=== PATIENT | male | born 1965 | race Caucasian/White ===

== ENCOUNTER 2018-02-26 12:09 | Emergency (ER) | payer OTHER ==
[2018-02-26 12:19] VITALS: BP 118/85; PULSE 83; TEMP 97.5; BMI 30.4
[2018-02-26] MEDS ORDERED: KETOROLAC TROMETHAMINE 60 MG/2 ML VIAL IM ONE (12:34)
[2018-02-26] MEDS ORDERED: CYCLOBENZAPRINE HCL 10 MG TABLET (FP) PO ONE (12:34)
--- NOTE | 2018-02-26 12:38 | PDOC ---
History of Present Illness - General Stated Complaint: BACK PAIN Time Seen by Provider: 02/26/18 12:27 History Source: Patient - History of Present Illness Occurred: reports: other Pain Location: reports: back Past History - Past Medical History Allergies/Adverse Reactions: Allergies Allergy/AdvReac Type Severity Reaction Status Date / Time No Known Allergies Allergy Verified 02/26/18 12:14 Home Medications: Ambulatory Orders Carbidopa/Levodopa [Sinemet 25-100 mg Tablet] 2 each PO TID 02/26/18 Diclofenac Sodium [Voltaren -] 75 mg PO DAILY 02/26/18 Omeprazole 20 mg PO BID 02/26/18 Pramipexole Dihydrochloride [Mirapex -] 0.125 mg PO TID 02/26/18 Selegiline HCl 5 mg PO BID 02/26/18 Tramadol HCl 50 mg PO Q6H #15 tablet MDD 200 mg 02/26/18 COPD: No Other medical history: parkinsons - Surgical History Appendectomy: Yes - Suicide/Smoking/Psychosocial Hx Smoking History: Never smoked Have you smoked in the past 12 months: No Hx Alcohol Use: No Substance Use Type: None Review of Systems - Review of Systems Constitutional: No: Chills, Fever ABD/GI: No: Nausea, Vomiting, Abdominal cramping : No: Dysuria, Flank Pain, Hematuria Musculoskeletal: Yes: Back Pain Neurological: No: Numbness, Tingling, Weakness *Physical Exam - Vital Signs Last Vital Signs Temp Pulse Resp BP Pulse Ox 97.5 F L 83 18 118/85 99 02/26/18 12:16 02/26/18 12:16 02/26/18 12:16 02/26/18 12:16 02/26/18 12:16 - Physical Exam General Appearance: Yes: Appropriately Dressed, Mild Distress HEENT: positive: Normal Voice Gastrointestinal/Abdominal: positive: Soft. negative: Tender, Pulsatile Mass Musculoskeletal: positive: Vertebral Tenderness (to mid lower back). negative: CVA Tenderness Extremity: positive: Normal Inspection Integumentary: positive: Dry, Warm Neurologic: positive: Fully Oriented, Alert, Normal Mood/Affect, Motor Strength 5/5, Other (ambulatory ). negative: Sensory Deficit Medical Decision Making - Medical Decision Making 02/26/18 12:35 52-year-old male, history of Parkinson's disease, here with back pain. Patient states 2 days ago he woke up with mid lower back pain that radiates mostly to posterior aspect of left thigh. States pain mostly constant and getting worse. Did take diclofenac at home which relieved pain for 2-3 hours but then pain recurred. Denies any sensory changes, bowel or bladder incontinence, saddle anesthesia, symptoms, nausea, vomiting or fever. No history of similar pain. No recent trauma or other obvious inciting factors per patient See exam Lower back pain No trauma No infectious sxs No neuro sxs No abd/pain, n/v Possibly MSK, i.e strain, DJD, etc -pain control in ED -reassess 02/26/18 13:34 Patient states he still has some pain, though may be better with toradol. X- ray read as mild rotatory levoscoliosis and DJD. Will dc with pain control and instruct patient to follow-up with his PMD *DC/Admit/Observation/Transfer Diagnosis at time of Disposition: Low back pain Qualifiers: Chronicity: acute Back pain laterality: unspecified Sciatica presence: without sciatica Qualified Code(s): M54.5 - Low back pain - Discharge Dispostion Disposition: HOME Condition at time of disposition: Improved - Prescriptions Prescriptions: Tramadol HCl 50 mg PO Q6H #15 tablet MDD 200 mg - Referrals - Patient Instructions Printed Discharge Instructions: DI for Low Back Pain Additional Instructions: Your spine X-ray today showed some arthritic changes. Take tramadol for pain when it is severe, otherwise you can take Tylenol or extra strength Tylenol. If pain persists, please follow-up with your primary care physician Print Language: JAPANESE - Post Discharge Activity
[2018-02-26] MEDS ORDERED: CYCLOBENZAPRINE HCL 10 MG TABLET (FP) ONE (12:44)
[2018-02-26] MEDS ORDERED: KETOROLAC TROMETHAMINE 60 MG/2 ML VIAL ONE (12:44)
== END 2018-02-26 14:30 | disposition home or self-care (01) ==
LOC: JER 12:09
PROC: 3E0233Z Introduction of Anti-inflammatory into Muscle, Percutaneous Approach (ICD-10-PCS; principal; 2018-02-26)
DX: M54.5 Low back pain (principal); G20 Parkinson's disease
CPT/HCPCS: 72100-TC-FY; 99281-25

== ENCOUNTER 2019-06-17 18:42 | Inpatient (IN) | payer OTHER ==
--- NOTE | 2019-06-17 19:20 | PDOC ---
Rapid Medical Evaluation Chief Complaint: Pain Time Seen by Provider: 06/17/19 19:15 Medical Evaluation: Allergies Allergy/AdvReac Type Severity Reaction Status Date / Time No Known Allergies Allergy Verified 02/26/18 12:14 Vital Signs Temp Pulse Resp BP Pulse Ox 98.9 F 125 H 16 134/90 99 06/17/19 19:13 06/17/19 19:13 06/17/19 19:13 06/17/19 19:13 06/17/19 19:13 06/17/19 19:16 Pt presents for evaluation of RUQ pain. He was seen by his doctor today and there was concern for possible kidney stone. Pt endorses urinary hesitency. Exam: TTP RUQ, (-) CVA tenderness. Pt feels warm to touch Orders: Labs, CT stone, urine Pt to proceed to the ER for further evaluation Discharge Disposition - Diagnosis Back pain Qualifiers: Back pain location: back pain in unspecified location Chronicity: unspecified Back pain laterality: unspecified Qualified Code(s): M54.9 - Dorsalgia, unspecified - Referrals - Patient Instructions - Post Discharge Activity
--- NOTE | 2019-06-17 20:04 | PDOC ---
Attending Attestation - Resident Resident Name: AngusJeffrey - ED Attending Attestation I have performed the following: I have examined & evaluated the patient, The case was reviewed & discussed with the resident, I agree w/resident's findings & plan - HPI HPI: 06/17/19 23:09 see resident hpi - Physicial Exam PE: 06/17/19 23:09 see resident exam - Medical Decision Making 06/17/19 23:09 54-year-old male with fevers and right upper quadrant pain Labs and ultrasound suggestive of acute cholecystitis Unasyn 3 g given Admit to medical service for surgical consultation
--- NOTE | 2019-06-17 20:42 | PDOC ---
History of Present Illness - General Chief Complaint: Pain Stated Complaint: LOWER BACK PAIN Time Seen by Provider: 06/17/19 19:15 - History of Present Illness Initial Comments: Mr. Robert is a 54 y/o male with reported PMH significant for Parkinson's and sciatica, presenting today with two days of right upper abdominal pain. Reports that he slept on his right arm on Saturday night and woke up with the pain on Saturday. Reports that the pain is worse when leaning forward and when driving. He had a fever yesterday and took motrin, which helped with both the fever and the pain. Pain is not worse with eating. Never had this pain before. Denies any pain radiation. Pain is reproducible. Sent in from urgent care for r/o kidney stone. No left chest pain, no shortness of breath, no chills, no cough. No dysuria or hematuria. No diarrhea or constipation. Past History - Past Medical History Allergies/Adverse Reactions: Allergies Allergy/AdvReac Type Severity Reaction Status Date / Time No Known Allergies Allergy Verified 02/26/18 12:14 Home Medications: Ambulatory Orders Carbidopa/Levodopa [Sinemet 25-100 mg Tablet] 2 each PO TID 02/26/18 Omeprazole 20 mg PO BID 02/26/18 Selegiline HCl 5 mg PO BID 02/26/18 Atenolol [Tenormin] 50 mg PO DAILY 06/18/19 Ergocalciferol [Vitamin D2] 1 cap PO WEEKLY 06/18/19 Gabapentin 300 mg PO HS 06/18/19 Ibuprofen 800 mg PO PRN 06/18/19 Pramipexole Di-HCl [Mirapex] 0.5 mg PO TID 06/18/19 Tadalafil 20 mg PO DAILY 06/18/19 COPD: No - Surgical History Appendectomy: Yes - Psycho Social/Smoking Cessation Hx Smoking History: Never smoked Have you smoked in the past 12 months: No Hx Alcohol Use: No Substance Use Type: None Review of Systems - Review of Systems Comments:: GENERAL/CONSTITUTIONAL: Reports fever. No chills. No weakness._ HEAD, EYES, EARS, NOSE AND THROAT: No change in vision. No change in hearing. No sore throat._ CARDIOVASCULAR: No chest pain or shortness of breath_ RESPIRATORY: Denies cough, hemoptysis_ GASTROINTESTINAL: Reports right sided abdominal pain. No nausea, vomiting, diarrhea or constipation._ GENITOURINARY: No dysuria, frequency, or change in urination._ MUSCULOSKELETAL: No joint or muscle swelling or pain. No neck or back pain._ SKIN: No rash_ NEUROLOGIC: No headache, vertigo, loss of consciousness, or change in strength/ sensation._ ENDOCRINE: No increased thirst. No abnormal weight change_ HEMATOLOGIC/LYMPHATIC: No anemia, easy bleeding, or history of blood clots._ ALLERGIC/IMMUNOLOGIC: No hives or skin allergy._ *Physical Exam - Vital Signs Last Vital Signs Temp Pulse Resp BP Pulse Ox 98.9 F 125 H 16 134/90 99 06/17/19 19:13 06/17/19 19:13 06/17/19 19:13 06/17/19 19:13 06/17/19 19:13 - Physical Exam GENERAL: Awake, alert, and oriented to person/place/time, in no acute distress_ HEAD: No signs of trauma, normoc ephalic, atraumatic _ EYES: PERRLA, EOMI, sclera anicteric, conjunctiva clear_ ENT: Hearing grossly normal, nares patent, oropharynx clear without exudates. No uvular deviation. Moist mucosa_ NECK: Normal ROM, supple, no lymphadenopathy, JVD, or masses_ LUNGS: No distress, speaks in full sentences, clear to auscultation bilaterally _ HEART: Regular rate and rhythm, normal S1 and S2, no murmurs appreciated, peripheral pulses normal and equal bilaterally._ CHEST: TTP lower right chest wall. BACK: No CVA TTP bilaterally. ABDOMEN: Soft, TTP RUQ, normoactive bowel sounds. No guarding, no rebound. No masses_ EXTREMITIES: Normal inspection, Normal range of motion, no edema. No clubbing or cyanosis_ NEUROLOGICAL: Cranial nerves II through XII grossly intact. Normal speech, no focal sensorimotor deficits _ SKIN: Warm, Dry, normal turgor, no rashes or lesions noted_ ED Treatment Course - LABORATORY CBC & Chemistry Diagram: 06/18/19 10:28 06/18/19 10:28 - RADIOLOGY Radiology Studies Ordered: Category Date Time Status CHEST PA & LAT [RAD] Stat Radiology 06/17/19 20:24 Ordered Medical Decision Making - Medical Decision Making 06/17/19 20:42 54M presenting with RUQ/right lower chest wall pain. Concern for GB pathology vs kidney stone vs r/o PE -cbc, cmp, lipase, lactic -ekg, cxr, trop -ua, ucx -US GB 06/17/19 21:42 US shows partially contracted thick walled gallbladder. 06/17/19 21:48 EKG shows sinus tachycardia, 114 bpm, no ST elevation, QTc 416. CXR shows right base pleural effusion and atelectasis. 06/17/19 21:54 D/w Dr. Slade who recommends fluids, abx, pain control, NPO and will evaluate in the morning. Labs reviewed. Laboratory Tests 06/17/19 06/17/19 06/17/19 20:50 20:50 20:50 WBC 13.4 H RBC 5.12 Hgb 13.5 Hct 41.0 MCV 80.0 MCH 26.4 MCHC 33.0 RDW 13.9 Plt Count 482 H D MPV 8.6 Absolute Neuts (auto) 9.1 H Neutrophils % 67.9 Lymphocytes % 13.4 D Monocytes % 7.9 Eosinophils % 9.8 H Basophils % 1.0 Nucleated RBC % 0 Sodium 136 Potassium 4.2 Chloride 104 Carbon Dioxide 28 Anion Gap 5 L BUN 15.4 Creatinine 0.9 Est GFR (CKD-EPI)AfAm 111.83 Est GFR (CKD-EPI)NonAf 96.49 Random Glucose 128 H Lactic Acid 1.2 Calcium 10.2 H Total Bilirubin 0.8 AST 39 H ALT 25 Alkaline Phosphatase 312 H Creatine Kinase Troponin I Total Protein 8.1 Albumin 3.0 L Lipase 06/17/19 20:50 WBC RBC Hgb Hct MCV MCH MCHC RDW Plt Count MPV Absolute Neuts (auto) Neutrophils % Lymphocytes % Monocytes % Eosinophils % Basophils % Nucleated RBC % Sodium Potassium Chloride Carbon Dioxide Anion Gap BUN Creatinine Est GFR (CKD-EPI)AfAm Est GFR (CKD-EPI)NonAf Random Glucose Lactic Acid Calcium Total Bilirubin AST ALT Alkaline Phosphatase Creatine Kinase 68 Troponin I < 0.02 Total Protein Albumin Lipase 193 06/17/19 22:00 D/w Dr. Alvarez who accepts the patient for admission. Discharge - Discharge Information Problems reviewed: Yes Clinical Impression/Diagnosis: Cholecystitis, acute Condition: Stable - Admission Yes - Follow up/Referral - Patient Discharge Instructions - Post Discharge Activity
[2019-06-17 21:03] LABS: EOS % 9.8 % (0-4.5); HEMOGLOBIN 13.5 GM/dL (11.7-16.9); LYMPH % 13.4 % (8-40); MCH 26.4 pg (25.7-33.7); MEAN PLT VOLUME 8.6 fl (7.5-11.1); MONO % 7.9 % (3.8-10.2); NEUT % 67.9 % (42.8-82.8); PLATELET COUNT 482 K/MM3 (134-434); RBC 5.12 M/mm3 (4.00-5.60); RDW 13.9 % (11.9-15.9); WHITE BLOOD COUNT 13.4 K/mm3 (4.0-10.0)
[2019-06-17 21:30] LABS: BILIRUBIN,TOTAL 0.8 mg/dL (0.2-1); BLOOD UREA NITROGEN 15.4 mg/dL (7-18); CALCIUM 10.2 mg/dL (8.5-10.1); CREATININE 0.9 mg/dL (0.55-1.3); POTASSIUM 4.2 mmol/L (3.5-5.1); TOT PROT 8.1 g/dl (6.4-8.2)
[2019-06-17 21:36] LABS: LIPASE 193 U/L (73-393)
[2019-06-17] MEDS ORDERED: SODIUM CHLORIDE 1,000 ML IV STA (21:47)
[2019-06-17] MEDS ORDERED: morphine CARPU-JECT 2 MG/1 ML DISP.SYRIN IVPUSH ONE (21:48)
[2019-06-17] MEDS ORDERED: AMPICILLIN NA/SULBACTAM NA 3 GM in SODIUM CHLORIDE 100 ML IVPB ONE (22:03)
[2019-06-17] MEDS ORDERED: MORPHINE SULFATE 2 MG/ML VIAL ONE (22:06)
--- NOTE | 2019-06-17 22:14 | HP ---
CHIEF COMPLAINT: RUQ abdominal pain PCP: HISTORY OF PRESENT ILLNESS: Pt is a 54 y/o M with a significant past medical history of Parkinson's disease and sciatica who presented to [facility] due to RUQ abdominal pain. Pt endorses that his pain commenced yesterday evening. Patient cannot attribute his pain to any precipitating factors. Pain is described as a "knife like" sensation, intermittent, and a 10/10 in pain severity at its maximum. Patient has never experienced this type of pain before. Furthermore patient states that he felt rather warm yesterday as if he had a fever and subsequently took Advil with partial relief. Patient did not record his temperature. Endorses consuming a vegetable rich diet. Denies chest pain, shortness of breath, nausea/vomiting, decreased appetite, or recent sick contacts. PMH as above Social Cirilo T/A/D SurgHx- Appendectomy FamHx- NC NKDA ER course was notable for: (1) WBC 13.4 (2) RUQ U/S--> Partially contracted thick gallbladder wall w/ calculi. Acute cholecystitis cannot be ruled out. (3) HR 125 HOME MEDICATIONS: Home Medications Medication Instructions Recorded Carbidopa/Levodopa [Sinemet 25-100 2 each PO TID 02/26/18 mg Tablet] Diclofenac Sodium [Voltaren -] 75 mg PO DAILY 02/26/18 Omeprazole 20 mg PO BID 02/26/18 Pramipexole Dihydrochloride 0.125 mg PO TID 02/26/18 [Mirapex -] Selegiline HCl 5 mg PO BID 02/26/18 REVIEW OF SYSTEMS CONSTITUTIONAL: PRESENT FEVER HEENT: Absent: rhinorrhea, nasal congestion, throat pain, throat swelling, difficulty swallowing, mouth swelling, ear pain, eye pain, visual changes CARDIOVASCULAR: Absent: chest pain, syncope, palpitations, irregular heart rate, lightheadedness , peripheral edema RESPIRATORY: Absent: cough, shortness of breath, dyspnea with exertion, orthopnea, wheezing, stridor, hemoptysis GASTROINTESTINAL: PRESENT abdominal pain GENITOURINARY: Absent: dysuria, frequency, urgency, hesitancy, hematuria, flank pain, genital pain MUSCULOSKELETAL: Absent: myalgia, arthralgia, joint swelling, back pain, neck pain SKIN: Absent: rash, itching, pallor HEMATOLOGIC/IMMUNOLOGIC: Absent: easy bleeding, easy bruising, lymphadenopathy, frequent infections ENDOCRINE: Absent: unexplained weight gain, unexplained weight loss, heat intolerance, cold intolerance NEUROLOGIC: Absent: headache, focal weakness or paresthesias, dizziness, unsteady gait, seizure, mental status changes, bladder or bowel incontinence PSYCHIATRIC: Absent: anxiety, depression, suicidal or homicidal ideation, hallucinations. PHYSICAL EXAMINATION Vital Signs - 24 hr 06/17/19 19:13 Temperature 98.9 F Pulse Rate 125 H Respiratory 16 Rate Blood Pressure 134/90 O2 Sat by Pulse 99 Oximetry (%) GENERAL: nad aaoX3, masked like facies HEAD: AT/NC EYES: No scleral icterus, EOMI EARS, NOSE, THROAT: MMM NECK: Supple LUNGS: CTAB HEART: Tachycardic S1S2 ABDOMEN: ++Aggarwal's sign. No guarding or rigidity MUSCULOSKELETAL: FROM. LOWER EXTREMITIES: no significant edema. NEUROLOGICAL: Cranial nerves II-XII intact. Normal speech. PSYCHIATRIC: Cooperative. Good eye contact. Appropriate mood and affect. SKIN: Moist, hot Laboratory Results - last 24 hr 06/17/19 06/17/19 06/17/19 20:50 20:50 20:50 WBC 13.4 H RBC 5.12 Hgb 13.5 Hct 41.0 MCV 80.0 MCH 26.4 MCHC 33.0 RDW 13.9 Plt Count 482 H D MPV 8.6 Absolute Neuts (auto) 9.1 H Neutrophils % 67.9 Lymphocytes % 13.4 D Monocytes % 7.9 Eosinophils % 9.8 H Basophils % 1.0 Nucleated RBC % 0 Sodium 136 Potassium 4.2 Chloride 104 Carbon Dioxide 28 Anion Gap 5 L BUN 15.4 Creatinine 0.9 Est GFR (CKD-EPI)AfAm 111.83 Est GFR (CKD-EPI)NonAf 96.49 Random Glucose 128 H Lactic Acid 1.2 Calcium 10.2 H Total Bilirubin 0.8 AST 39 H ALT 25 Alkaline Phosphatase 312 H Creatine Kinase Troponin I Total Protein 8.1 Albumin 3.0 L Lipase 06/17/19 20:50 WBC RBC Hgb Hct MCV MCH MCHC RDW Plt Count MPV Absolute Neuts (auto) Neutrophils % Lymphocytes % Monocytes % Eosinophils % Basophils % Nucleated RBC % Sodium Potassium Chloride Carbon Dioxide Anion Gap BUN Creatinine Est GFR (CKD-EPI)AfAm Est GFR (CKD-EPI)NonAf Random Glucose Lactic Acid Calcium Total Bilirubin AST ALT Alkaline Phosphatase Creatine Kinase 68 Troponin I < 0.02 Total Protein Albumin Lipase 193 ASSESSMENT/PLAN: Pt is a 54 y/o M with a significant past medical history of Parkinson's disease and sciatica who presented to [facility] due to RUQ abdominal pain. # Sepsis 2/2 likely acute cholecystitis -WBC 13.4, Tachycardic at 125, likely source of infection gallbladder. -RUQ U/S---> Partially contracted thick gallbladder wall w/ calculi. Acute cholecystitis cannot be ruled out. -Unasyn 1 dose administered per Emergency Department. Will place on Zosyn. Consult I.D -Surgery Consult Dr Slade on board. Will evaluate patient in am. -NPO -Lactated Ringer's -Blood/Urine Cultures -Morphine 2 mg Q6H pain scale 7-10 -Ofirmev pain scale 1-5 -Type and Screen, PT/PTT #Parkinson's disease -Pt restarted on home medications. However day team to verify medications with [facility] in [place], [place] #FEN -LR@100cc/hr -Monitor Electrolytes -NPO #DVT ppx -SCDs in light of likely surgery in am #Dispo; -Tele Visit type - Emergency Visit Emergency Visit: Yes ED Registration Date: 06/17/19 Care time: The patient presented to the Emergency Department on the above date and was hospitalized for further evaluation of their emergent condition. - New Patient This patient is new to me today: Yes Date on this admission: 06/18/19 - Critical Care Critical Care patient: No
[2019-06-17] MEDS ORDERED: MORPHINE SULFATE 2 MG/ML VIAL IVPUSH PRN (22:15)
[2019-06-17] MEDS ORDERED: HEPARIN NA (PORCINE) 5,000 UNITS/ML 1ML VIAL ONE (22:27)
[2019-06-17] MEDS ORDERED: LACTATED RINGERS SOLUTION 1,000 ML/1,000 ML INFUS.BAG IV SCH (22:30)
[2019-06-17] MEDS ORDERED: HEPARIN NA (PORCINE) 5,000 UNITS/ML 1ML VIAL SQ SCH (22:30)
[2019-06-17] MEDS ORDERED: ACETAMINOPHEN INJECTION 100 ML IVPB ONE (22:31)
[2019-06-17] MEDS: ACETAMINOPHEN 1000 MG/100 ML VIAL (NON FORMULARY) IVPB PRN (22:32)
[2019-06-17] MEDS ORDERED: PIPERACILLIN/TAZOB 4.5 GM 4.5 GM in DEXTROSE 5%-WATER 100 ML IVPB ONE (23:14)
--- NOTE | 2019-06-18 03:04 | PN ---
Teaching Attending Note Name of Resident: Hong Alvarez ATTENDING PHYSICIAN STATEMENT I saw and evaluated the patient. I reviewed the resident's note and discussed the case with the resident. I agree with the resident's findings and plan as documented. SUBJECTIVE: 54-year-old male, history of Parkinson's disease, complaining of right upper quadrant abdominal pain for the past 2 to 3 days, steadily worsening associated with some nausea. Found to have tachycardia, leukocytosis in the emergency room. Given initially 1 dose of Unasyn. OBJECTIVE: Last Vital Signs Temp Pulse Resp BP Pulse Ox 98.9 F 125 H 16 134/90 99 06/17/19 19:13 06/17/19 19:13 06/17/19 19:13 06/17/19 19:13 06/17/19 19:13 GENERAL: Well developed, well nourished. Awake and alert. Slow, shuffling gait, Bradykinesia HEENT: Normocephalic, atraumatic. PERRLA, EOMI. No conjunctival pallor. Sclera are non- icteric. Moist mucous membranes. Oropharynx is clear. NECK: Supple. Full ROM. No JVD. Carotid pulses 2+ and symmetric, without bruits. No thyromegaly. No lymphadenopathy. CARDIOVASCULAR: Regular rate and rhythm. No murmurs, rubs, or gallops. Distal pulses are 2+ and symmetric. PULMONARY: No evidence of respiratory distress. Lungs clear to auscultation bilaterally. No wheezing, rales or rhonchi. ABDOMINAL: Soft.Right upper quadrant tenderness. Non-distended. No rebound or guarding. No organomegaly. Normoactive bowel sounds. Positive Aggarwal sign MUSCULOSKELETAL Normal range of motion at all joints. No bony deformities or tenderness. No CVA tenderness. EXTREMITIES: No cyanosis. No clubbing. No edema. No calf tenderness. SKIN: Warm and dry. Normal capillary refill. No rashes. No jaundice. PSYCHIATRIC: Cooperative. Good eye contact. Appropriate mood and affect. Abnormal Lab Results 06/17/19 06/17/19 20:50 20:50 WBC 13.4 H Plt Count 482 H D Absolute Neuts (auto) 9.1 H Eosinophils % 9.8 H Anion Gap 5 L Random Glucose 128 H Calcium 10.2 H AST 39 H Alkaline Phosphatase 312 H Albumin 3.0 L Imaging studies reviewed ASSESSMENT AND PLAN: 54-year-old male with sepsis secondary to cholecystitis, suspect possible sending cholecystitis. Tachycardia, positive leukocytosis. Thrombocytosis suspect acute reactive marker likely secondary to acute infection. Elevated alk phos consistent with cholecystitis. Hypoalbuminemia. Admit to MedSurg Blood cultures x2 Zosyn 3.375 g IV every 6 hours Surgery consult for cholecystectomy N.p.o. PT/PTT Type and screen IV morphine for pain control Zofran IV for pain control SCDs for DVT prophylaxis
[2019-06-18] MEDS ORDERED: CARBIDOPA/LEVODOPA 25/100 TABLET (FP) ONE (04:03)
[2019-06-18 04:36] LABS: INR 1.25 (0.83-1.09); PROTHROMBIN TIME (PATIENT) 14.8 SEC (9.7-13.0)
[2019-06-18] MEDS ORDERED: CARBIDOPA/LEVODOPA 25/100 TABLET (FP) PO SCH (06:00)
[2019-06-18] MEDS ORDERED: PRAMIPEXOLE DIHYDROCHLORIDE 0.125 MG TABLET PO SCH (06:00)
--- NOTE | 2019-06-18 08:54 | PN ---
Teaching Attending Note Name of Resident: Radha Sanchez ATTENDING PHYSICIAN STATEMENT I saw and evaluated the patient. I reviewed the resident's note and discussed the case with the resident. I agree with the resident's findings and plan as documented. Seen and examined; please see resident note for further historical information. I personally verified all jackson historical information and exam findings. Personally interpreted all imaging and diagnostics and reviewed appropriate consults. I reviewed all labs and vital signs as per resident note and EMR as documented. I agree with the above assessment and plan unless supplemented by myself in the following. Patient will be going to the operating room later today for cholecystectomy. Discussed with surgical services. Furthermore, the patient will be able to be likely discharged tomorrow if there are no postoperative complications. Verified his home medications, can continue his anti-parkinsonism drugs. No need for infectious disease consult, he is not diabetic and does not have any risk factors and does not have a perforated viscus. We will opt for Levaquin and Flagyl and we will follow him clinically. Follow-up with surgical services. I agree with DVT prophylaxis. Monitor for dysphagia given the parkinsonian is him history. 10 item review of systems completed and is negative aside from as discussed in the subjective data in my own/the resident documentation. VS, labs, imaging reviewed NAD, AAO, resting comfortably in bed. RRR s1/2 no mgr Normal muscle tone, moves all 5 extremities with normal apparent strength Neck is supple, trachea midline, no jose LN Lungs CTAB with sym expansion NT ND +BS no jose organomegaly CN2-12 wnl; no FND NC AT EOMI PERRLA Normal mood, appropriate behavior, euthymic affect No skin breakdown or rashes noted Assessment and plan: Problems discussed above; include acute cholecystitis and chronic parkinsonism.
--- NOTE | 2019-06-18 09:14 | CONSULT ---
- Consultation REQUESTING PROVIDER: CONSULT REQUEST: We have been asked to surgically evaluate this patient for abdominal pain and gallstones on US. PCP: Augie Lee MD HISTORY OF PRESENT ILLNESS: Mr. Robert is a 54 y/o male with reported PMH significant for Parkinson's and sciatica, presenting today with three days of right upper abdominal pain. Reports that the pain is worse when leaning forward and lying down. He reports that he had a fever Saturday and took Motrin, which helped with both the fever and the pain. He denies any nausea, vomiting, diarrhea, chest pain or SOB. On Saturday he went to urgent care who referred him to the ED to r/o a kidney stone. He last ate yesterday at 3pm. Past History - Past Medical History As stated above Allergies/Adverse Reactions: Allergies Allergy/AdvReac Type Severity Reaction Status Date / Time No Known Allergies Allergy Verified 02/26/18 12:14 Home Medications: Ambulatory Orders Carbidopa/Levodopa [Sinemet 25-100 mg Tablet] 2 each PO TID 02/26/18 Diclofenac Sodium [Voltaren -] 75 mg PO DAILY 02/26/18 Omeprazole 20 mg PO BID 02/26/18 Pramipexole Dihydrochloride [Mirapex -] 0.125 mg PO TID 02/26/18 Selegiline HCl 5 mg PO BID 02/26/18 COPD: No - Surgical History Appendectomy: Yes - Psycho Social/Smoking Cessation Hx Smoking History: Never smoked Have you smoked in the past 12 months: No Hx Alcohol Use: No Substance Use Type: None Review of Systems - Review of Systems Comments:: GENERAL/CONSTITUTIONAL: Reports fever. No chills. No weakness. HEAD, EYES, EARS, NOSE AND THROAT: No change in vision. No change in hearing. No sore throat._ CARDIOVASCULAR: No chest pain or shortness of breath_ RESPIRATORY: Denies cough, hemoptysis_ GASTROINTESTINAL: Reports right sided abdominal pain. No nausea, vomiting, diarrhea or constipation._ GENITOURINARY: No dysuria, frequency, or change in urination._ MUSCULOSKELETAL: No joint or muscle swelling or pain. No neck or back pain._ SKIN: No rash_ NEUROLOGIC: No headache, vertigo, loss of consciousness, or change in strength/ sensation._ ENDOCRINE: No increased thirst. No abnormal weight change_ HEMATOLOGIC/LYMPHATIC: No anemia, easy bleeding, or history of blood clots._ ALLERGIC/IMMUNOLOGIC: No hives or skin allergy._ *Physical Exam - Vital Signs Vital Signs Period Temp Pulse Resp BP Sys/Dominguez Pulse Ox Last 24 Hr 98.2 F-98.9 F 87-125 16-18 125-134/83-90 99-100 - Physical Exam GENERAL: Awake, alert, and oriented to person/place/time, in no acute distress HEAD: No signs of trauma, normocephalic, atraumatic _ EYES: PERRLA, sclera anicteric, conjunctiva clear ENT: Hearing grossly normal, trachea midline LUNGS: No distress, speaks in full sentences, Unlabored resp on RA, no accessory muscle use ABDOMEN: Obese, Soft, TTP focal at RUQ, normoactive bowel sounds. No guarding, no rebound. No masses EXTREMITIES: Normal inspection, Normal range of motion, no edema. No clubbing or cyanosis NEUROLOGICAL: Cranial nerves II through XII grossly intact. Normal speech. SKIN: Warm, Dry, normal turgor, no rashes or lesions noted CBC, BMP 06/17/19 20:50 06/17/19 20:50 Ultrasound: Thickened gallbladder wall with calculi. Problem List - Problems (1) Cholelithiasis Assessment/Plan: 54 you with symptomatic cholelithiasis and elevated WBC. Plan for lap florecita later today with Echevarria. -NPO for OR today -IV ABX -Pain control -IVF -Medical optimization for OR -DVT and GI prophylaxis. Evaluation and plan discussed with Dr Slade Code(s): K80.20 - CALCULUS OF GALLBLADDER W/O CHOLECYSTITIS W/O OBSTRUCTION
[2019-06-18] MEDS ORDERED: morphine SULFATE 4 MG/ML VIAL IVPUSH PRN (09:58)
[2019-06-18] MEDS ORDERED: PIPERACILLIN/TAZOB 3.375 GM 3.375 GM in DEXTROSE 5%-WATER - 50 ML IVPB SCH (10:00)
[2019-06-18] MEDS ORDERED: PANTOPRAZOLE 20 MG TABLET PO SCH (10:00)
[2019-06-18] MEDS ORDERED: ACETAMINOPHEN INJECTION 100 ML IVPB ONE ×2 (10:36→16:19)
[2019-06-18] MEDS: ACETAMINOPHEN 1000 MG/100 ML VIAL (NON FORMULARY) IVPB PRN (10:49)
[2019-06-18 11:07] LABS: HEMATOCRIT 39.2 % (35.4-49); MCH 26.5 pg (25.7-33.7); MCHC 33.1 g/dl (32.0-35.9); MEAN CELL VOLUME 79.9 fl (80-96); MEAN PLT VOLUME 8.4 fl (7.5-11.1); PLATELET COUNT 446 K/MM3 (134-434); RBC 4.91 M/mm3 (4.00-5.60); RDW 13.8 % (11.9-15.9); WHITE BLOOD COUNT 10.7 K/mm3 (4.0-10.0)
[2019-06-18 11:21] LABS: INR 1.19 (0.83-1.09); PROTHROMBIN TIME (PATIENT) 14.1 SEC (9.7-13.0)
[2019-06-18 11:24] LABS: ACTIVATED PTT 35.2 SECONDS (25.2-36.5)
[2019-06-18 11:30] LABS: ALBUMIN 2.9 g/dl (3.4-5.0); BILIRUBIN,TOTAL 0.9 mg/dL (0.2-1); BLOOD UREA NITROGEN 12.2 mg/dL (7-18); CREATININE 0.7 mg/dL (0.55-1.3); PHOSPHOROUS 2.9 mg/dL (2.5-4.9); POTASSIUM 4.2 mmol/L (3.5-5.1); TOT PROT 7.7 g/dl (6.4-8.2)
[2019-06-18] MEDS ORDERED: BENZOIN/ALOE VERA/STORAX/TOLU 58 ML BOTTLE ONE (11:55)
[2019-06-18] MEDS ORDERED: SELEGILINE HCL 5 MG CAPSULE PO SCH (12:00)
[2019-06-18] MEDS ORDERED: PIPERACILLIN/TAZOB 3.375 GM 3.375 GM/50 ML BAG IVPB ONE (12:39)
[2019-06-18] MEDS ORDERED: ONDANSETRON 4 MG/2 ML VIAL IVPUSH PRN ×2 (13:25→16:35)
[2019-06-18] MEDS ORDERED: PROMETHAZINE HCL 25 MG/1 ML VIAL IVPB PRN ×2 (13:25→16:35)
[2019-06-18] MEDS ORDERED: LACTATED RINGERS SOLUTION 1,000 ML IV SCH (13:30)
--- NOTE | 2019-06-18 13:42 | PN ---
Progress Note (short form) - Note Progress Note: Attending Surgeon Patient seen and evaluated; chart reviewed; concur w/ a/p as outlined by PA; for lap florecita possible open; r/b/t/a/'s d/w the patient in [place] and [place] and informed consent obtained; on imaging there is no intra/extrahepatic biliary dilatation and CBD is normal. Melecio Slade MD FACS
[2019-06-18] MEDS ORDERED: PROPOFOL 20 ML ONE ×3 (14:11→15:21)
[2019-06-18] MEDS ORDERED: ROCURONIUM BROMIDE 50 MG/5 ML SYRINGE ONE (14:11)
[2019-06-18] MEDS ORDERED: SUCCINYLCHOLINE CHLORIDE 200 MG/10 ML SYRINGE ONE (14:20)
--- NOTE | 2019-06-18 14:26 | EKG ---
Test Reason : Blood Pressure : / mmHG Vent. Rate : 114 BPM Atrial Rate : 114 BPM P-R Int : 128 ms QRS Dur : 088 ms QT Int : 302 ms P-R-T Axes : 043 -18 013 degrees QTc Int : 416 ms POOR DATA QUALITY, INTERPRETATION MAY BE ADVERSELY AFFECTED SINUS TACHYCARDIA MODERATE VOLTAGE CRITERIA FOR LVH, MAY BE NORMAL VARIANT BORDERLINE ECG WHEN COMPARED WITH ECG OF 19-MAR-2014 21:00, NO SIGNIFICANT CHANGE WAS FOUND Confirmed by YINKA RAMOS MD ([id number]) on 06/18/2019 2:26:11 PM Referred By: Confirmed By:YINKA RAMOS MD
[2019-06-18] MEDS ORDERED: KETOROLAC TROMETHAMINE 30 MG/1 ML VIAL ONE (14:41)
[2019-06-18] MEDS ORDERED: KETAMINE HCL 200 MG/20 ML VIAL ONE (14:42)
--- NOTE | 2019-06-18 14:52 | PN ---
Physical Exam: SUBJECTIVE: Patient seen and examined. Patient complaining of RUQ pain. States that he was seen by surgery PA and was told he will go for cholecystectomy today. OBJECTIVE: Vital Signs Period Temp Pulse Resp BP Sys/Dominguez Pulse Ox Last 24 Hr 98.2 F-98.9 F 87-125 16-18 125-134/83-90 99-100 GENERAL: The patient is awake, alert, and fully oriented, in mild distress due to pain HEAD: Normal with no signs of trauma. EYES: PERRL, EOMI, no ptosis ENT: MMM NECK: Trachea midline, full range of motion, supple. LUNGS: Breath sounds equal, clear to auscultation bilaterally, no wheezes, no crackles, no accessory muscle use. HEART: Regular rate and rhythm, S1, S2 without murmur, rub or gallop. ABDOMEN: Positive murphys sign, tenderness to palpation over RUQ, nondistended EXTREMITIES: 2+ pulses, warm, well-perfused, no edema. NEUROLOGICAL: Normal speech, gait not observed. PSYCH: Normal mood, normal affect. SKIN: Warm, dry, normal turgor Laboratory Results - last 24 hr 06/17/19 06/17/19 06/17/19 20:50 20:50 20:50 WBC 13.4 H RBC 5.12 Hgb 13.5 Hct 41.0 MCV 80.0 MCH 26.4 MCHC 33.0 RDW 13.9 Plt Count 482 H D MPV 8.6 Absolute Neuts (auto) 9.1 H Neutrophils % 67.9 Lymphocytes % 13.4 D Monocytes % 7.9 Eosinophils % 9.8 H Basophils % 1.0 Nucleated RBC % 0 PT with INR INR PTT (Actin FS) Sodium 136 Potassium 4.2 Chloride 104 Carbon Dioxide 28 Anion Gap 5 L BUN 15.4 Creatinine 0.9 Est GFR (CKD-EPI)AfAm 111.83 Est GFR (CKD-EPI)NonAf 96.49 Random Glucose 128 H Lactic Acid 1.2 Calcium 10.2 H Phosphorus Total Bilirubin 0.8 AST 39 H ALT 25 Alkaline Phosphatase 312 H Creatine Kinase Troponin I Total Protein 8.1 Albumin 3.0 L Lipase Influenza A (Rapid) Influenza B (Rapid) Blood Type Antibody Screen 06/17/19 06/17/19 06/18/19 20:50 23:30 03:06 WBC RBC Hgb Hct MCV MCH MCHC RDW Plt Count MPV Absolute Neuts (auto) Neutrophils % Lymphocytes % Monocytes % Eosinophils % Basophils % Nucleated RBC % PT with INR INR PTT (Actin FS) 29.1 Sodium Potassium Chloride Carbon Dioxide Anion Gap BUN Creatinine Est GFR (CKD-EPI)AfAm Est GFR (CKD-EPI)NonAf Random Glucose Lactic Acid Calcium Phosphorus Total Bilirubin AST ALT Alkaline Phosphatase Creatine Kinase 68 Troponin I < 0.02 Total Protein Albumin Lipase 193 Influenza A (Rapid) Negative Influenza B (Rapid) Negative Blood Type Antibody Screen 06/18/19 06/18/19 06/18/19 03:06 03:06 10:28 WBC 10.7 H RBC 4.91 Hgb 13.0 Hct 39.2 MCV 79.9 L MCH 26.5 MCHC 33.1 RDW 13.8 Plt Count 446 H MPV 8.4 Absolute Neuts (auto) Neutrophils % Lymphocytes % Monocytes % Eosinophils % Basophils % Nucleated RBC % PT with INR 14.80 H INR 1.25 H PTT (Actin FS) Sodium Potassium Chloride Carbon Dioxide Anion Gap BUN Creatinine Est GFR (CKD-EPI)AfAm Est GFR (CKD-EPI)NonAf Random Glucose Lactic Acid Calcium Phosphorus Total Bilirubin AST ALT Alkaline Phosphatase Creatine Kinase Troponin I Total Protein Albumin Lipase Influenza A (Rapid) Influenza B (Rapid) Blood Type A POSITIVE Antibody Screen Negative 06/18/19 06/18/19 10:28 10:28 WBC RBC Hgb Hct MCV MCH MCHC RDW Plt Count MPV Absolute Neuts (auto) Neutrophils % Lymphocytes % Monocytes % Eosinophils % Basophils % Nucleated RBC % PT with INR 14.10 H INR 1.19 H PTT (Actin FS) 35.2 Sodium 136 Potassium 4.2 Chloride 105 Carbon Dioxide 23 Anion Gap 9 BUN 12.2 Creatinine 0.7 Est GFR (CKD-EPI)AfAm 124.00 Est GFR (CKD-EPI)NonAf 106.99 Random Glucose 87 Lactic Acid Calcium 10.0 Phosphorus 2.9 Total Bilirubin 0.9 AST 28 ALT 21 Alkaline Phosphatase 297 H Creatine Kinase Troponin I Total Protein 7.7 Albumin 2.9 L Lipase Influenza A (Rapid) Influenza B (Rapid) Blood Type Antibody Screen Active Medications Generic Name Dose Route Start Last Admin Trade Name Freq PRN Reason Stop Dose Admin Acetaminophen 1,000 mg 06/17/19 22:15 06/18/19 10:49 Ofirmev Injection - IVPB 06/18/19 22:15 1,000 mg Q6H PRN Administration PAIN LEVEL 1-5 Carbidopa/Levodopa 2 each 06/18/19 06:00 06/18/19 06:07 Sinemet 25/100 - PO 2 each TID YESSY Administration Fentanyl 50 mcg 06/18/19 13:25 Sublimaze Injection - IVPUSH 06/19/19 13:24 [id number] PRN PAIN-PACU ORDER X 4 DOSES ONLY Lactated Ringer's 1,000 ml in 1,000 mls @ 100 mls/hr 06/17/19 22:30 06/17/19 22:32 Lactated Ringers Solution IV 100 mls/hr ASDIR YESSY Administration Piperacillin Sod/Tazobactam 50 mls @ 100 mls/hr 06/18/19 10:00 Sod 3.375 gm/ Dextrose IVPB Q8H-IV YESSY Protocol Metronidazole 500 mg in 100 mls @ 100 mls/hr 06/18/19 10:00 06/18/19 10:49 Flagyl 500mg Premixed Ivpb - IVPB 100 mls/hr Q8H-IV YESSY Administration Piperacillin Sod/Tazobactam 50 mls @ 100 mls/hr 06/18/19 10:00 Sod 3.375 gm/ Dextrose IVPB 06/19/19 10:29 Q8H-IV YESSY Morphine Sulfate 4 mg 06/18/19 09:58 Morphine Sulfate IVPUSH Q4H PRN PAIN LEVEL 4 - 6 Ondansetron HCl 4 mg 06/18/19 13:25 Zofran Injection IVPUSH 06/19/19 13:24 Q6H PRN NAUSEA AND/OR VOMITING Pantoprazole Sodium 20 mg 06/18/19 10:00 06/18/19 11:04 Protonix - PO Not Given BID YESSY Pramipexole Dihydrochloride 0.125 mg 06/18/19 06:00 06/18/19 06:07 Mirapex - PO 0.125 mg TID YESSY Administration Promethazine HCl 12.5 mg 06/18/19 13:25 Phenergan Injection - IVPB 06/19/19 13:24 Q6H PRN NAUSEA-FOR RESCUE AFTER 15 MIN Selegiline HCl 5 mg 06/18/19 12:00 Selegiline Hcl PO BID@0800,1200 [facility] ASSESSMENT/PLAN: 54 y/o/m with PMHx of Parkinson's disease and sciatica who presented to [facility] due to RUQ abdominal pain. #Sepsis 2/2 likely acute cholecystitis - WBC 13.4, Tachycardic at 125 on admission, likely source of infection gallbladder. - RUQ U/S showing partially contracted thick gallbladder wall w/ calculi. Acute cholecystitis cannot be ruled out. Positive sonographic mcmahon's sign - Unasyn x1 dose, Zosyn x1 dose - Started on Levaquin 750mg daily and Metronidazole 500mg Q8H - To go for cholecystectomy today as per surgical PA note - NPO - IVF - blood cultures negative to date - Morphine 4mg Q4H, d/c after sugery - pain control as per surgery after cholecystectomy #Parkinson's disease - restarted home meds: Pramipexole, Carbidopa/Levidopa, Selegiline #FEN - LR @100mls/hr - Monitor and replete electrolytes as needed - NPO, diet as per surgery after cholecystectomy #Pophylaxis - SCDs. holding chemical AC in setting of cholecystectomy today #Disposition - Cholecystectomy today, possible D/C tomorrow Visit type - Emergency Visit Emergency Visit: Yes ED Registration Date: 06/17/19 Care time: The patient presented to the Emergency Department on the above date and was hospitalized for further evaluation of their emergent condition. - New Patient This patient is new to me today: Yes Date on this admission: 06/18/19 - Critical Care Critical Care patient: No - Discharge Referral Referred to [facility] Med P.C.: No ATTENDING PHYSICIAN STATEMENT I saw and evaluated the patient. I reviewed the resident's note and discussed the case with the resident. I agree with the resident's findings and plan as documented. SUBJECTIVE: OBJECTIVE: ASSESSMENT AND PLAN:
[2019-06-18] MEDS ORDERED: BUPIVACAINE HCL/PF 0.5% (5 MG/ML) 30 ML VIAL IJ ONE (14:54)
[2019-06-18] MEDS ORDERED: LIDOCAINE HCL/PF 2% SDV 5ML VIAL ONE (15:38)
[2019-06-18] MEDS ORDERED: GLYCOPYRROLATE 0.2 MG/1 ML VIAL ONE (15:38)
[2019-06-18] MEDS ORDERED: NEOSTIGMINE METHYLSULFATE 0.5 MG/ML - 10 ML MDV ONE (15:38)
[2019-06-18] MEDS ORDERED: DEXAMETHASONE SOD PHOSPHATE 4 MG/1 ML VIAL ONE (15:38)
--- NOTE | 2019-06-18 16:26 | SURG ---
Surgery Tray Checker Note Tray Checker: Derian Howell PA-C Date of Service: 06/18/19 Diagnosis: acute cholecystitis Procedure: laproscopic cholecystectomy I was present for the entirety of the operative procedure. For further detail, please refer to operative report. Visit type - Case Type Case Type: Scheduled - Emergency Emergency Visit: Yes ED Registration Date: 06/17/19 Care time: The patient presented to the Emergency Department on the above date and was hospitalized for further evaluation of their emergent condition. - New patient This patient is new to me today: No - Critical Care Critical Care patient: No
[2019-06-18] MEDS ORDERED: ACETAMINOPHEN 1000 MG/100 ML VIAL (NON FORMULARY) IVPB ONE (16:31)
[2019-06-18] MEDS ORDERED: ACETAMINOPHEN 1000 MG/100 ML VIAL (NON FORMULARY) IVPB PRN (16:35)
[2019-06-18] MEDS: LACTATED RINGERS SOLUTION 1,000 ML/1,000 ML INFUS.BAG IV SCH (18:15)
[2019-06-18] MEDS: morphine SULFATE 4 MG/ML VIAL IVPUSH PRN (20:56)
[2019-06-18] MEDS ORDERED: PT OWN MED DRAWER 7, Y5N ONE (21:05)
[2019-06-18] MEDS: PRAMIPEXOLE DIHYDROCHLORIDE 0.5 MG TABLET PO SCH (21:51)
[2019-06-18] MEDS: CARBIDOPA/LEVODOPA 25/100 TABLET (FP) PO SCH ×2 (21:52→21:55)
[2019-06-18] MEDS: GABAPENTIN 300 MG CAPSULE PO SCH (21:52)
[2019-06-18] MEDS: PANTOPRAZOLE 20 MG TABLET PO SCH (21:52)
[2019-06-18] MEDS ORDERED: PRAMIPEXOLE DIHYDROCHLORIDE 0.5 MG TABLET PO SCH (22:00)
[2019-06-18] MEDS ORDERED: GABAPENTIN 300 MG CAPSULE PO SCH (22:00)
[2019-06-19 00:08] VITALS: BMI 33.0
[2019-06-19] MEDS: morphine SULFATE 4 MG/ML VIAL IVPUSH PRN ×2 (01:29→07:07)
[2019-06-19] MEDS: LACTATED RINGERS SOLUTION 1,000 ML/1,000 ML INFUS.BAG IV SCH (02:57)
[2019-06-19] MEDS: CARBIDOPA/LEVODOPA 25/100 TABLET (FP) PO SCH ×3 (06:48→21:57)
[2019-06-19] MEDS: PRAMIPEXOLE DIHYDROCHLORIDE 0.5 MG TABLET PO SCH ×3 (06:48→21:59)
--- NOTE | 2019-06-19 08:13 | PN ---
Teaching Attending Note Name of Resident: Weirajinderdedra Perdomo Daniel ATTENDING PHYSICIAN STATEMENT I saw and evaluated the patient. I reviewed the resident's note and discussed the case with the resident. I agree with the resident's findings and plan as documented. ATTENDING PHYSICIAN STATEMENT I saw and evaluated the patient. I reviewed the resident's note and discussed the case with the resident. I agree with the resident's findings and plan as documented. Seen and examined; please see resident note for further historical information. I personally verified all jackson historical information and exam findings. Personally interpreted all imaging and diagnostics and reviewed appropriate consults. I reviewed all labs and vital signs as per resident note and EMR as documented. I agree with the above assessment and plan unless supplemented by myself in the following. Patient is doing well postoperatively. We will transition him to p.o. antibiotics and cleared with surgery. If he is okay to be discharged per their service we will discharge him home with a course of Levaquin and Flagyl and he will be able to follow-up with his primary care and with his primary neurologist. Can follow-up with surgery per their service. We will elucidate why he is on NC this AM. He is documented as being at 95% on 2L when he came in he was on RA @99%. He is also persistently tachycardic. We will check a BNP given that he got a good deal of fluid (and at that, DC his fluids and monitor as he is not clinically septic). 10 item review of systems completed and is negative aside from as discussed in the subjective data in my own/the resident documentation. VS, labs, imaging reviewed NAD, AAO, resting comfortably in bed. RRR s1/2 no mgr Normal muscle tone, moves all 5 extremities with normal apparent strength Neck is supple, trachea midline, no jose LN Lungs CTAB with sym expansion No postoperative issues with op sites c/d/i; minimally tender with ND +BS no jose organomegaly CN2-12 wnl; no FND. Stereotyped Parkinsonian features. NC AT EOMI PERRLA Normal mood, appropriate behavior, euthymic affect No skin breakdown or rashes noted Assessment and plan: Problems discussed above; include acute cholecystitis and chronic parkinsonism and obesity. Alk phos remains elevated-checking GGT (but did downtrend) Investigating desaturations-nonsmoker, no hx lung disease or CHF. Checking CXR , BNP.
[2019-06-19 08:27] LABS: HEMATOCRIT 35.8 % (35.4-49); HEMOGLOBIN 11.7 GM/dL (11.7-16.9); MCH 26.5 pg (25.7-33.7); MCHC 32.7 g/dl (32.0-35.9); MEAN CELL VOLUME 81.1 fl (80-96); MEAN PLT VOLUME 8.5 fl (7.5-11.1); PLATELET COUNT 430 K/MM3 (134-434); RBC 4.41 M/mm3 (4.00-5.60); RDW 13.9 % (11.9-15.9); WHITE BLOOD COUNT 12.9 K/mm3 (4.0-10.0)
[2019-06-19 08:53] LABS: BLOOD UREA NITROGEN 15.1 mg/dL (7-18); CALCIUM 9.2 mg/dL (8.5-10.1); CREATININE 0.8 mg/dL (0.55-1.3); MAGNESIUM 2.1 mg/dL (1.8-2.4); POTASSIUM 4.5 mmol/L (3.5-5.1)
[2019-06-19] MEDS: SELEGILINE HCL 5 MG CAPSULE PO SCH ×2 (09:00→13:34)
[2019-06-19] MEDS ORDERED: PT OWN MED DRAWER 7, Y5N ONE ×3 (09:01→21:53)
--- NOTE | 2019-06-19 09:46 | OP ---
Operative Note - Note: Operative Date: 06/18/19 Pre-Operative Diagnosis: acute cholecystiyis/cholelithiasis Operation: laparoscopic cholecystectomy Findings: as per pre op dx. Post-Operative Diagnosis: Same as Pre-op Surgeon: Melecio Slade [place] Engineer: Derian Howell Anesthesiologist/EDISCOVERY PROJECT MANAGER: Dany Alicea Anesthesia: General Specimens Removed: gallbladder and contents Estimated Blood Loss (mls): 25
[2019-06-19 09:51] LABS: N-TERMINAL BNP 165.4 pg/ml (5-125)
[2019-06-19] MEDS ORDERED: ATENOLOL 50 MG TABLET (FP) PO SCH (10:00)
[2019-06-19] MEDS: PANTOPRAZOLE 20 MG TABLET PO SCH ×2 (10:12→23:08)
--- NOTE | 2019-06-19 10:18 | PN ---
Progress Note (short form) - Note Progress Note: Surgery POD#1 laparoscopic cholecystectomy patient seen and examined at bedside with no complaints. Patient has been urinating without limitation but has not been OOB yet. He denies any CP, SOB, N/V, fever or chills. Vital Signs Temp 98.3 F 06/19/19 06:00 Pulse 113 H 06/19/19 06:00 Resp 18 06/19/19 06:00 BP 126/69 06/19/19 06:00 Pulse Ox 95 06/18/19 20:00 Intake & Output 06/18/19 06/18/19 06/19/19 11:59 23:59 11:59 Intake Total 1350 1200 Output Total 170 500 Balance 1180 700 Weight 217 lb Intake: IV 1350 1200 LACTATED RINGERS SOLUTION 1200 1,000 ml In 1,000 ml @ 100 mls/hr IV ASDIR YESSY Rx#:[id number] Output: Urine 150 500 Void 500 Estimated Blood Loss 20 Other: Voiding Method Toilet Urinal # Unmeasured Voids Void 1 1 Bowel Movement No Height 5 ft 8 in Body Mass Index (BMI) 33.0 Weight Measurement Method Standing Scale CBC, BMP 06/19/19 07:30 06/19/19 07:30 Abnormal Lab Results 06/18/19 06/18/19 06/18/19 10:28 10:28 10:28 WBC 10.7 H MCV 79.9 L Plt Count 446 H PT with INR 14.10 H INR 1.19 H Anion Gap Random Glucose Alkaline Phosphatase 297 H B-Natriuretic Peptide Albumin 2.9 L 06/19/19 06/19/19 07:30 07:30 WBC 12.9 H MCV Plt Count PT with INR INR Anion Gap 6 L Random Glucose 142 H Alkaline Phosphatase B-Natriuretic Peptide 165.4 H Albumin PE: A&Ox3, NAD unlabored resp on RA ABD: soft, ND, with mild TTP over RUQ. dressings c/d/i with surrounding tissue in tact and no tracking erythema or evidence of d/c Problem List - Problems (1) Cholelithiasis Assessment/Plan: POD #1 lap florecita, patient remains tachy with elevated BNP -agree with medicine continue workup for tachycardia and elevated enzymes- cardiology consult PRN -Clear diet- advance as tolerated -d/c IVF -OOB as tolerated -encourage IS -d/c planning for home Evaluation and plan discussed with Dr Slade Code(s): K80.20 - CALCULUS OF GALLBLADDER W/O CHOLECYSTITIS W/O OBSTRUCTION
--- NOTE | 2019-06-19 10:26 | OP ---
DATE OF OPERATION: 06/18/2019 PREOPERATIVE DIAGNOSIS: Acute cholecystitis and cholelithiasis. POSTOPERATIVE DIAGNOSIS: Acute cholecystitis and cholelithiasis. PROCEDURE: Laparoscopic cholecystectomy. SURGEON: Melecio Slade MD AIR HOLE DRILLER: MICHELLE Wang ANESTHESIA: General. OPERATIVE FINDINGS: There was cholelithiasis and acute cholecystitis. The rest of the findings were unremarkable. DESCRIPTION OF PROCEDURE: The patient was placed on the operating room table in supine position. After the induction of general anesthesia, the patient's abdomen was prepped with ChloraPrep and draped in sterile fashion. Time-out was taken and then pneumoperitoneum established above the umbilicus using a Veress needle. Once 15 mm of intra-abdominal pressure was obtained, a 5-mm port was placed at the umbilicus. Additional lateral 5-mm ports and a subxiphoid 12-mm port were placed and laparoscopy carried out, and the previously noted findings were observed. The gallbladder was placed on cephalad and lateral traction, and dissection was begun at the neck of the gallbladder where the peritoneum was opened medially and laterally using blunt and sharp dissection and electrocautery. Dissection continued in the triangle of Calot where the cystic duct was identified coursing from the neck of the gallbladder distally to the common bile duct. It was dissected proximally and distally for length. Similarly, the artery was similarly identified and dissected. A critical view of safety was taken, and then the cystic duct divided proximally and distally using Endo Taco after it was clipped twice proximally and distally with large hemoclips. The artery was similarly clipped and divided. Hemostasis was checked for and noted to be good and then the gallbladder was removed from the liver bed in a retrograde fashion using electrocautery. Prior to removal from the edge of the liver, hemostasis was again verified and then the gallbladder removed from the edge of the liver, placed in an EndoCatch, and brought out through the subxiphoid port. Pneumoperitoneum was reestablished, hemostasis verified again, and then the 5-mm lateral and subxiphoid ports were removed under laparoscopic vision without evidence of bleeding from the port sites. The umbilical port was removed and the pneumoperitoneum evacuated. All port sites were infiltrated with 0.5% Marcaine and the skin edges closed with 4-0 Biosyn in a subcuticular and continuous fashion. Steri-Strips and Band-Aid dressings were placed and the procedure terminated at this point and the patient aroused from general anesthesia and transferred to the post anesthesia care unit in stable condition awake and alert. ESTIMATED BLOOD LOSS: 25 mL. REPLACEMENTS: Crystalloid. DRAINS: None. SPECIMENS: Gallbladder and contents to Pathology. I, Melecio Slade, was physically present in the operating room from the time the patient was placed on the operating room table until he was transferred to the post anesthesia care unit in [employer]. MD ARTURO Mallory/[id number]
[2019-06-19] MEDS ORDERED: LACTATED RINGERS SOLUTION 1000 ML INFUS.BAG IV ONE (10:55)
[2019-06-19] MEDS: ATENOLOL 50 MG TABLET (FP) PO SCH (12:02)
--- NOTE | 2019-06-19 17:22 | PN ---
Physical Exam: SUBJECTIVE: Patient seen and examined. Complains of mild pain over surgical incision sight but otherwise doing well. No acute events overnight. OBJECTIVE: Vital Signs Period Temp Pulse Resp BP Sys/Dominguez Pulse Ox Last 24 Hr 97.4 F-99 F 97-113 16-20 107-141/69-96 95-98 GENERAL: The patient is awake, alert, and fully oriented, in mild distress due to pain HEAD: Normal with no signs of trauma. EYES: PERRL, EOMI, no ptosis ENT: MMM NECK: Trachea midline, full range of motion, supple. LUNGS: Breath sounds equal, clear to auscultation bilaterally, no wheezes, no crackles, no accessory muscle use. HEART: Regular rate and rhythm, S1, S2 without murmur, rub or gallop. ABDOMEN: negative murphys sign, mild tenderness to palpation over RUQ, nondistended. surgical incisions clean, dry, intact EXTREMITIES: 2+ pulses, warm, well-perfused, no edema. NEUROLOGICAL: Normal speech, gait not observed. no facial droop PSYCH: Normal mood, normal affect. SKIN: Warm, dry, normal turgor Laboratory Results - last 24 hr 06/19/19 06/19/19 07:30 07:30 WBC 12.9 H RBC 4.41 Hgb 11.7 Hct 35.8 MCV 81.1 MCH 26.5 MCHC 32.7 RDW 13.9 Plt Count 430 MPV 8.5 Sodium 137 Potassium 4.5 Chloride 106 Carbon Dioxide 25 Anion Gap 6 L BUN 15.1 Creatinine 0.8 Est GFR (CKD-EPI)AfAm 117.38 Est GFR (CKD-EPI)NonAf 101.27 Random Glucose 142 H Serum Osmolality 290 Calcium 9.2 Magnesium 2.1 GGT 83 B-Natriuretic Peptide 165.4 H Active Medications Generic Name Dose Route Start Last Admin Trade Name Freq PRN Reason Stop Dose Admin Atenolol 50 mg 06/19/19 10:00 06/19/19 12:02 Tenormin - PO 50 mg DAILY YESSY Administration Carbidopa/Levodopa 2 each 06/18/19 22:00 06/19/19 16:04 Sinemet 25/100 - PO 2 each TID YESSY Administration Gabapentin 300 mg 06/18/19 22:00 06/18/19 21:52 Neurontin - PO 300 mg HS YESSY Administration Levofloxacin 750 mg 06/19/19 17:30 Levaquin - PO DAILY [facility] Metronidazole 500 mg 06/19/19 22:00 Flagyl - PO BID YESSY Pantoprazole Sodium 20 mg 06/18/19 22:00 06/19/19 10:12 Protonix - PO 20 mg BID YESSY Administration Pramipexole Dihydrochloride 0.5 mg 06/18/19 22:00 06/19/19 14:14 Mirapex - PO 0.5 mg TID YESSY Administration Selegiline HCl 5 mg 06/19/19 08:00 06/19/19 13:34 Selegiline Hcl PO 5 mg BID@0800,1200 YESSY Administration ASSESSMENT/PLAN: 54 y/o/m with PMHx of Parkinson's disease and sciatica who presented to [facility] due to RUQ abdominal pain. #Sepsis 2/2 likely acute cholecystitis - WBC 13.4, Tachycardic at 125 on admission, likely source of infection gallbladder. - RUQ U/S showing partially contracted thick gallbladder wall w/ calculi. Acute cholecystitis cannot be ruled out. Positive sonographic mcmahon's sign - Unasyn x1 dose, Zosyn x1 dose - POD#1 s/p cholecystectomy - blood cultures negative to date - pain control as per surgery after cholecystectomy #Atelectasis vs. early Pneumonia - patient consistently tachycardic s/p surgery - CXR shows right sided atelectasis vs. early infiltrate -> concern for aspiration pna due to recent surg and hx of parkinsons - Will continue Levaquin 750mg daily and Metronidazole 500mg Q8H - WBC downtrending, patient afebrile. monitor #Parkinson's disease - restarted home meds: Pramipexole, Carbidopa/Levidopa, Selegiline #FEN - IVF discontinued - Monitor and replete electrolytes as needed - Regular diet #Pophylaxis - SCDs #Disposition - POD#1 s/p cholecystectomy. Treating for possible asp PNA. Visit type - Emergency Visit Emergency Visit: Yes ED Registration Date: 06/17/19 Care time: The patient presented to the Emergency Department on the above date and was hospitalized for further evaluation of their emergent condition. - New Patient This patient is new to me today: No - Critical Care Critical Care patient: No ATTENDING PHYSICIAN STATEMENT I saw and evaluated the patient. I reviewed the resident's note and discussed the case with the resident. I agree with the resident's findings and plan as documented. SUBJECTIVE: OBJECTIVE: ASSESSMENT AND PLAN:
[2019-06-19] MEDS: levoFLOXacin 750 MG TABLET PO SCH (19:38)
[2019-06-19] MEDS: GABAPENTIN 300 MG CAPSULE PO SCH (21:57)
[2019-06-19] MEDS: metroNIDAZOLE 500 MG TABLET PO SCH (21:58)
[2019-06-19] MEDS ORDERED: MELATONIN 5 MG TABLETS PO ONE (22:18)
[2019-06-20] MEDS: levoFLOXacin 750 MG TABLET PO SCH (06:56)
[2019-06-20] MEDS: PRAMIPEXOLE DIHYDROCHLORIDE 0.5 MG TABLET PO SCH ×2 (06:56→13:03)
[2019-06-20] MEDS: CARBIDOPA/LEVODOPA 25/100 TABLET (FP) PO SCH ×2 (06:57→13:03)
--- NOTE | 2019-06-20 07:55 | PN ---
Physical Exam: SUBJECTIVE: Patient seen and examined OBJECTIVE: Vital Signs Period Temp Pulse Resp BP Sys/Dominguez Pulse Ox Last 24 Hr 97.6 F-99 F 81-108 18-18 95-125/54-80 93-95 GENERAL: The patient is awake, alert, and fully oriented, in no acute distress. HEAD: Normal with no signs of trauma. EYES: PERRL, extraocular movements intact, sclera anicteric, conjunctiva clear. No ptosis. ENT: Ears normal, nares patent, oropharynx clear without exudates, moist mucous membranes. NECK: Trachea midline, full range of motion, supple. LUNGS: Breath sounds equal, clear to auscultation bilaterally, no wheezes, no crackles, no accessory muscle use. HEART: Regular rate and rhythm, S1, S2 without murmur, rub or gallop. ABDOMEN: Soft, nontender, nondistended, normoactive bowel sounds, no guarding, no rebound, no hepatosplenomegaly, no masses. EXTREMITIES: 2+ pulses, warm, well-perfused, no edema. NEUROLOGICAL: Cranial nerves II through XII grossly intact. Normal speech, gait not observed. PSYCH: Normal mood, normal affect. SKIN: Warm, dry, normal turgor, no rashes or lesions noted Laboratory Results - last 24 hr 06/19/19 06/19/19 07:30 07:30 WBC 12.9 H RBC 4.41 Hgb 11.7 Hct 35.8 MCV 81.1 MCH 26.5 MCHC 32.7 RDW 13.9 Plt Count 430 MPV 8.5 Sodium 137 Potassium 4.5 Chloride 106 Carbon Dioxide 25 Anion Gap 6 L BUN 15.1 Creatinine 0.8 Est GFR (CKD-EPI)AfAm 117.38 Est GFR (CKD-EPI)NonAf 101.27 Random Glucose 142 H Serum Osmolality 290 Calcium 9.2 Magnesium 2.1 GGT 83 B-Natriuretic Peptide 165.4 H Active Medications Generic Name Dose Route Start Last Admin Trade Name Freq PRN Reason Stop Dose Admin Atenolol 50 mg 06/19/19 10:00 06/19/19 12:02 Tenormin - PO 50 mg DAILY YESSY Administration Carbidopa/Levodopa 2 each 06/18/19 22:00 06/20/19 06:57 Sinemet 25/100 - PO Not Given TID YESSY Gabapentin 300 mg 06/18/19 22:00 06/19/19 21:57 Neurontin - PO 300 mg HS YESSY Administration Levofloxacin 750 mg 06/19/19 17:30 06/20/19 06:56 Levaquin PO 750 mg DAILY@0600 YESSY Administration Metronidazole 500 mg 06/19/19 22:00 06/19/19 21:58 Flagyl - PO 500 mg BID YESSY Administration Pantoprazole Sodium 20 mg 06/18/19 22:00 06/19/19 23:08 Protonix - PO 20 mg BID YESSY Administration Pramipexole Dihydrochloride 0.5 mg 06/18/19 22:00 06/20/19 06:56 Mirapex - PO 0.5 mg TID YESSY Administration Selegiline HCl 5 mg 06/19/19 08:00 06/19/19 13:34 Selegiline Hcl PO 5 mg BID@0800,1200 YESSY Administration ASSESSMENT/PLAN:
[2019-06-20] MEDS: SELEGILINE HCL 5 MG CAPSULE PO SCH ×2 (08:38→11:58)
[2019-06-20] MEDS: PANTOPRAZOLE 20 MG TABLET PO SCH (09:41)
[2019-06-20] MEDS: metroNIDAZOLE 500 MG TABLET PO SCH (09:42)
[2019-06-20 09:46] LABS: HEMATOCRIT 36.4 % (35.4-49); HEMOGLOBIN 12.1 GM/dL (11.7-16.9); MCH 26.8 pg (25.7-33.7); MCHC 33.3 g/dl (32.0-35.9); MEAN CELL VOLUME 80.3 fl (80-96); PLATELET COUNT 463 K/MM3 (134-434); RBC 4.53 M/mm3 (4.00-5.60); RDW 13.8 % (11.9-15.9); WHITE BLOOD COUNT 9.1 K/mm3 (4.0-10.0)
[2019-06-20 10:19] LABS: BLOOD UREA NITROGEN 12.8 mg/dL (7-18); CREATININE 0.7 mg/dL (0.55-1.3); POTASSIUM 4.1 mmol/L (3.5-5.1)
[2019-06-20] MEDS: ATENOLOL 50 MG TABLET (FP) PO SCH (10:32)
[2019-06-20] MEDS ORDERED: CARBIDOPA/LEVODOPA 25/100 TABLET (FP) PO SCH (14:23)
[2019-06-20] MEDS ORDERED: PT OWN MED DRAWER 7, Y5N ONE (15:41)
[2019-06-20 16:07] VITALS: BP 132/96; PULSE 85; TEMP 98.2
--- NOTE | 2019-06-20 17:21 | DS ---
Physical Exam: SUBJECTIVE: Patient seen and examined OBJECTIVE: Vital Signs Period Temp Pulse Resp BP Sys/Dominguez Pulse Ox Last 24 Hr 97.6 F-98.2 F 81-106 18-18 95-132/54-96 93-95 PHYSICAL EXAM GENERAL: The patient is awake, alert, and fully oriented, in no acute distress. HEAD: Normal with no signs of trauma. EYES: PERRL, extraocular movements intact, sclera anicteric, conjunctiva clear. ENT: Ears normal, nares patent, oropharynx clear without exudates, moist mucous membranes. NECK: Trachea midline, full range of motion, supple. LUNGS: Breath sounds equal, clear to auscultation bilaterally, no wheezes, no crackles, no accessory muscle use. HEART: Regular rate and rhythm, S1, S2 without murmur, rub or gallop. ABDOMEN: Soft, nontender, nondistended, normoactive bowel sounds, no guarding, no rebound, no hepatosplenomegaly, no masses. EXTREMITIES: 2+ pulses, warm, well-perfused, no edema. NEUROLOGICAL: Cranial nerves II through XII grossly intact. Normal speech, gait not observed. PSYCH: Normal mood, normal affect. SKIN: Warm, dry, normal turgor, no rashes or lesions noted. LABS Laboratory Results - last 24 hr 06/20/19 06/20/19 08:45 08:45 WBC 9.1 RBC 4.53 Hgb 12.1 Hct 36.4 MCV 80.3 MCH 26.8 MCHC 33.3 RDW 13.8 Plt Count 463 H MPV 8.0 Sodium 136 Potassium 4.1 Chloride 103 Carbon Dioxide 27 Anion Gap 6 L BUN 12.8 Creatinine 0.7 Est GFR (CKD-EPI)AfAm 124.00 Est GFR (CKD-EPI)NonAf 106.99 Random Glucose 96 Calcium 10.0 HOSPITAL COURSE: Date of Admission:06/17/19 Date of Discharge: 06/20/19 Minutes to complete discharge: 30 Discharge Summary Problems reviewed: Yes Reason For Visit: ACUTE CHOLECYSTITIS Current Active Problems Cholecystitis, acute (Acute) Cholelithiasis (Acute) Condition: Improved - Instructions Diet, Activity, Other Instructions: You presented to the hospital due to abdominal pain. You had imaging done which showed stones in your gallbladder. You were seen by surgery and had your gallbladder removed. You tolerated your diet well after surgery and are stable for discharge at this time. Medication changes: 1. No changes were made to your medications. Follow up labs: 1. Please have your liver function enzymes checked in 1 week as some of your liver enzymes were noted to be elevated during this admission. Follow up with the following physicians: 1. Please follow up with your primary care provider within one week of discharge for further management of your medical conditions and to discuss your surgery. 2. Recommended to follow up with Dr. Slade, general surgery, within 1 week of discharge for follow up of your surgery. Activity and Diet 1. Please monitor your diet as you need to consume a diet with less salt and continue to drink plenty of fluids. Continue all your other medications as prescribed Please return to the ER if you have any signs or symptoms of chest pain, shortness of breath, uncontrollable fever, chills, nausea, vomiting, numbness, tingling, or weakness in any part of your body, changes in vision, or slurred speech. Please return to the ER if symptoms persist, worsen, or new symptoms arise. Referrals: Melecio Slade MD [Staff Physician] - 1 Week Zaire Hwang MD [Primary Care Provider] - (3-5 days) Disposition: HOME - Home Medications Comprehensive Discharge Medication List: Ambulatory Orders Carbidopa/Levodopa [Sinemet 25-100 mg Tablet] 2 each PO TID 02/26/18 Omeprazole 20 mg PO BID 02/26/18 Selegiline HCl 5 mg PO BID 02/26/18 Atenolol [Tenormin] 50 mg PO DAILY 06/18/19 Ergocalciferol [Vitamin D2] 1 cap PO WEEKLY 06/18/19 Gabapentin 300 mg PO HS 06/18/19 Pramipexole Di-HCl [Mirapex] 0.5 mg PO TID 06/18/19 Tadalafil 20 mg PO DAILY 06/18/19 levoFLOXacin [Levaquin] 750 mg PO DAILY@0600 7 Days tab 06/20/19 metroNIDAZOLE [Flagyl -] 500 mg PO TID 6 Days tablet 06/20/19 This patient is new to me today: No Emergency Visit: No Critical Care patient: No - Discharge Referral Referred to [facility] No
--- NOTE | 2019-06-22 15:28 | PN ---
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
--- NOTE | 2019-06-22 15:41 | PATH ---
Surgical Pathology Report Patient Name: CHITRA UPTON Med. Rec. #: [id number] /Age/Gender: 1965 (Age: 54) / M Account: [id number] Location: [address] [place] [address]/[facility] Taken: 06/18/2019 Received: 06/19/2019 Reported: 06/22/2019 Physicians: MD Augie Mallory MD Specimen(s) Received GALLBLADDER Clinical History Acute cholecystitis Final Diagnosis GALLBLADDER, CHOLECYSTECTOMY: CHRONIC CHOLECYSTITIS , CHOLESTEROLOSIS, CHOLELITHIASIS. Electronically Signed Eve Sunshine M.D. Gross Description Received in formalin, labeled "gallbladder," is a 7.5 x 2.5 x 2.2 cm. gallbladder with a 0.2 cm. in length portion of cystic duct attached. The outer surface is galvan green and varies from smooth to shaggy. The lumen contains green, tenacious bile as well as 3 yellow, spherical, bosselated choleliths averaging 0.5 cm in greatest dimension. The mucosa is green and velvety with 2 yellow possible polyps averaging 0.1 cm greatest dimension. The wall of the gallbladder averages 0.2 cm. in thickness. New Home Sales Consultant sections are submitted in 2 cassettes as follows: 1-cystic duct margin and client service representative mucosa; 2-section with possible mucosal polyps. [facility]
== END 2019-06-20 19:29 | disposition home or self-care (01) | DRG 418 ==
LOC: JER 18:42 → JERBED 22:11 → J5S 06-18 18:27
PROVIDERS: ADMIT Internal Medicine; ATTEND Internal Medicine
PROC: 0FT44ZZ Resection of Gallbladder, Percutaneous Endoscopic Approach (ICD-10-PCS; principal; 2019-06-18 13:30)
DX: K80.12 Calculus of gallbladder with acute and chronic cholecystitis without obstruction (principal); J98.11 Atelectasis; G20 Parkinson's disease; R00.0 Tachycardia, unspecified; E66.9 Obesity, unspecified; Z68.33 Body mass index [BMI] 33.0-33.9, adult; E88.09 Other disorders of plasma-protein metabolism, not elsewhere classified; R10.11 Right upper quadrant pain
CPT/HCPCS: 36415; 71045-TC-FY; 71046-TC-FY; 76705-TC; 80048; 80053; 82550; 82977; 83605; 83690; 83735; 83880; 83930; 84100; 84484; 85025; 85027; 85610; 85730; 86850; 86900; 86901; 87040; 87804; 88304-TC; 93005; 93010; 94760; 94761; 99284-25; J0131; J1644; J7030

== ENCOUNTER 2020-01-24 18:01 | Inpatient (IN) | payer OTHER ==
[2020-01-24 18:06] VITALS: BMI 32.6
[2020-01-24] MEDS ORDERED: SODIUM CHLORIDE 0.9% 500 ML INFUS.BAG IV ONE (18:50)
[2020-01-24] MEDS ORDERED: KETOROLAC TROMETHAMINE 30 MG/1 ML VIAL IVPUSH ONE (18:50)
[2020-01-24] MEDS ORDERED: morphine CARPU-JECT 2 MG/1 ML DISP.SYRIN IVPUSH ONE (18:50)
[2020-01-24] MEDS ORDERED: MORPHINE SULFATE 2 MG/ML VIAL ONE (18:57)
[2020-01-24] MEDS ORDERED: KETOROLAC TROMETHAMINE 30 MG/1 ML VIAL ONE (18:57)
[2020-01-24 19:01] LABS: HEMATOCRIT 43.6 % (35.4-49); HEMOGLOBIN 14.2 GM/dL (11.7-16.9); MCH 25.4 pg (25.7-33.7); MCHC 32.6 g/dl (32.0-35.9); MEAN PLT VOLUME 9.2 fl (7.5-11.1); PLATELET COUNT 283 K/MM3 (134-434); RDW 16.2 % (11.9-15.9)
--- NOTE | 2020-01-24 19:01 | PDOC ---
History of Present Illness - General Chief Complaint: Pain Stated Complaint: PAIN History Source: Patient Exam Limitations: No Limitations - History of Present Illness Initial Comments: 01/24/20 18:56 Patient is a 54-year-old male with history of cholecystectomy, Parkinson's, arthritis, seasonal allergies here with complaints of suprapubic pain that radiates to the left flank since this morning. Described the pain as sharp in the suprapubic area 8.5/10 and a pressure in the flank, intermittent. Patient has history of kidney stones. Denies hematuria, fever, chills, nausea, vomiting. He took Tylenol 650 mg this morning for his symptoms. PMD: Dr. Dash PMHX: as above PSOCHX: neg etoh, neg drug, neg cig ALL: NKDA GENERAL/CONSTITUTIONAL: [No fever or chills. No weakness. No weight change.] HEAD, EYES, EARS, NOSE AND THROAT: [No change in vision. No ear pain or discharge. No sore throat.] CARDIOVASCULAR: [No chest pain or shortness of breath.] RESPIRATORY: [No cough, wheezing, or hemoptysis.] GASTROINTESTINAL: [No nausea, vomiting, diarrhea or constipation. No rectal bleeding.] GENITOURINARY: [No dysuria, frequency, or change in urination.] MUSCULOSKELETAL: [(+) joint or muscle swelling or pain. No neck or back pain.] SKIN AND BREASTS: [No rash or easy bruising.] NEUROLOGIC: [No headache, vertigo, loss of consciousness, or loss of sensation.] PSYCHIATRIC: [No depression or anxiety.] ENDOCRINE: [No increased thirst. No abnormal weight change.] HEMATOLOGIC/LYMPHATIC: [No anemia, easy bleeding, or history of blood clots.] ALLERGIC/IMMUNOLOGIC: [No hives or skin allergy. No latex allergy.] GENERAL: [The patient is awake, alert, and fully oriented, in moderate distress.] HEAD: [Normal with no signs of trauma.] EYES: [Pupils equal, round and reactive to light, extraocular movements intact, sclera anicteric, conjunctiva clear.] ENT: [Ears normal, nares patent, oropharynx clear without exudates. Moist mucous membranes.] NECK: [Normal range of motion, supple without lymphadenopathy, JVD, or masses.] LUNGS: [Breath sounds equal, clear to auscultation bilaterally. No wheezes, and no crackles.] HEART: [Regular rate and rhythm, normal S1 and S2 without murmur, rub.] ABDOMEN: [Soft, (+) tenderness suprapubic and left lower quad, normoactive bowel sounds. No guarding, no rebound. No masses, (+) L CVAT] EXTREMITIES: [Normal range of motion, no edema. No clubbing or cyanosis. No cords, erythema, or tenderness.] NEUROLOGICAL: [Cranial nerves II through XII grossly intact. Normal speech, gait instability.] PSYCH: [Normal mood, normal affect.] SKIN: [Warm, Dry, normal turgor, no rashes or lesions noted.] Past History - Medical History Allergies/Adverse Reactions: Allergies Allergy/AdvReac Type Severity Reaction Status Date / Time No Known Allergies Allergy Verified 01/24/20 18:07 Home Medications: Ambulatory Orders Carbidopa/Levodopa [Sinemet 25-100 mg Tablet] 2 each PO TID 02/26/18 Omeprazole 20 mg PO BID 02/26/18 Selegiline HCl 5 mg PO TID 02/26/18 Gabapentin 300 mg PO HS 06/18/19 COPD: No Kidney Stones: Yes Other medical history: parkinsons - Surgical History Appendectomy: Yes Cholecystectomy: Yes (06/18/19) - Psycho-Social/Smoking History Smoking History: Never smoked Have you smoked in the past 12 months: No - Substance Abuse Hx (Audit-C & DAST Scrn) How often the patient has a drink containing alcohol: Never Score: In Men: 4 or > Positive; In Women: 3 or > Positive: 0 Screen Result (Pos requires Nsg. Audit-10AR): Negative *Physical Exam - Vital Signs Last Vital Signs Temp Pulse Resp BP Pulse Ox 98 F 107 H 18 156/104 H 97 01/24/20 18:04 01/24/20 18:04 01/24/20 18:04 01/24/20 18:04 01/24/20 18:04 ED Treatment Course - LABORATORY CBC & Chemistry Diagram: 01/24/20 18:50 01/24/20 18:50 - RADIOLOGY Radiology Studies Ordered: Category Date Time Status ABDOMEN & PELVIS CT WITH CONTR [CT] Stat CT Scan 01/24/20 18:53 Ordered Medical Decision Making - Medical Decision Making 01/24/20 18:56 Patient is a 54-year-old male with history of Parkinson's, arthritis, seasonal allergies here with complaints of suprapubic pain that radiates to the left flank since this morning. Described the pain as sharp in the suprapubic area 8.5/10 and a pressure in the flank, intermittent. Patient has history of kidney stones. Denies hematuria, fever, chills, nausea, vomiting. He took Tylenol 650 mg this morning for his symptoms. DDX: renal colic, diverticulitis, labs pain meds CTAP 01/24/20 21:33 Patient Full Name: WON BUENROSTRO Patient Accession No: [id number] Patient : 1965 Reason for Exam: R/O DIVERTI Referring Physician: Patient Name: CHITRA UPTON THIS IS A PRELIMINARY REPORT FROM [facility] DATE OF SERVICE:2020-01-24 20:34:26 IMAGES: [id number] EXAM: CT abdomen and pelvis with contrast HISTORY:Rule out diverticulitis COMPARISON: None. FINDINGS: Atelectasis and scarring in lung bases. 4 mm right lower lobe nodules. No pleural effusions. The liver, pancreas, adrenal glands, and spleen are unremarkable. Cholecystectomy. *Bilateral renal cysts. Moderate left perinephric edema and mild left hydroureteronephrosis due to a 7 mm x 5 mm x 4 mm calculus in the proximal left ureter at the level of L4. No intrarenal calculi. No AAA. No evidence for diverticulitis, small bowel obstruction, free fluid, or free air. Surgical changes around the cecum suggestive of appendectomy. One or more of the following dose reduction techniques were used: automated exposure control, adjustment of the mA and/or kV according to patient size, use of iterative reconstructive technique. THIS DOCUMENT HAS BEEN ELECTRONICALLY SIGNED Tom Fortune MD 01/24/2020 21:09 OSBALDO Elizabeth Please call [facility] [phone] ([phone]) with questions. INTERPRETING RADIOLOGIST: Tom Fortune MD Electronically Signed: Jan 24, 2020 09:11PM EDT 01/24/20 22:03 Labs reviewed noted to have an SARAH since June 2019. Patient reevaluated complains of pain returning will give morphine 4 mg IV. Will admit patient for pain control and new SARAH secondary to obstructing stone. Discharge - Discharge Information Problems reviewed: Yes Clinical Impression/Diagnosis: SARAH (acute kidney injury), Biliary colic, Hydronephrosis with renal and ureteral calculous obstruction Condition: Stable - Admission Yes - Follow up/Referral - Patient Discharge Instructions - Post Discharge Activity
[2020-01-24 20:05] LABS: ALBUMIN 3.7 g/dl (3.4-5.0); BLOOD UREA NITROGEN 18.5 mg/dL (7-18); CALCIUM 10.3 mg/dL (8.5-10.1); CREATININE 1.3 mg/dL (0.55-1.3); POTASSIUM 4.2 mmol/L (3.5-5.1); TOT PROT 8.3 g/dl (6.4-8.2)
[2020-01-24 20:27] LABS: BILIRUBIN,TOTAL 0.3 mg/dL (0.2-1)
[2020-01-24 20:39] LABS: PH,URINE 5.5 (5.0-8.0); URINE APPEARANCE CLEAR; URINE BILIRUBIN NEGATIVE (NEGATIVE); URINE COLOR YELLOW; URINE GLUCOSE (UA) NEGATIVE (NEGATIVE); URINE KETONE NEGATIVE (NEGATIVE); URINE LEUK ESTERASE NEGATIVE (NEGATIVE); URINE NITRITE NEGATIVE (NEGATIVE); URINE PROTEIN TRACE (NEGATIVE)
[2020-01-24] MEDS ORDERED: morphine CARPU-JECT 4 MG/1 ML DISP.SYRIN IVPUSH ONE (22:18)
[2020-01-24] MEDS ORDERED: morphine SULFATE 4 MG/ML VIAL ONE (22:35)
--- NOTE | 2020-01-24 22:55 | PN ---
Teaching Attending Note Name of Resident: Eric Bansal ATTENDING PHYSICIAN STATEMENT I saw and evaluated the patient. I reviewed the resident's note and discussed the case with the resident. I agree with the resident's findings and plan as documented. SUBJECTIVE: Patient is a 54-year-old male with PMH of HTN, CAD, Kidney stones, Parkinson's d isease, Arthritis and Seasonal allergies who presents with complaints of suprapubic pain that radiates to the left flank since this morning. Described the pain as sharp in the suprapubic area, 8.5/10 and a pressure in the flank and is intermittent. Patient has history of kidney stones. Denies hematuria, fever, chills, nausea, vomiting. He took Tylenol 650 mg this morning for his symptoms. Patient denies fever, chills, nausea, vomiting, diarrhea, constipation, dysuria, frequency, urgency, melena, hematochezia or hematuria. Denies alcohol, tobacco or illicit drug use. No sick contacts or recent travels. Family history is unremarkable. OBJECTIVE: Alert Vital Signs Period Temp Pulse Resp BP Sys/Dominguez Pulse Ox Last 24 Hr 97.9 F-98 F 86-107 18-20 141-156/104-104 97-97 HEENT: No Jaundice, eye redness or discharge, PERRLA, EOMI. Normocephalic, atraumatic. External ears are normal and hearing is grossly intact. No nasal discharge. Neck: Supple, nontender. No palpable adenopathy or thyromegaly. No JVD Chest: Good effort. Clear to auscultation and percussion. Heart: Regular. No S3, rub or murmur Abdomen: Not distended, soft, Left CVAT and suprapubic tenderness and no HSM. No rebound or guarding. Normal bowel sounds. Ext: Peripheral pulses intact. No leg edema. Skin: Warm and dry. No petechiae, rash or ecchymosis. Neuro: Alert. Oriented x3. CN 2-12 grossly intact. Sensation grossly intact in all four extremities and DTR are symmetric. Psych: Appropriate mood and affect. Good insight. Home Medications Medication Instructions Recorded Carbidopa/Levodopa [Sinemet 25-100 2 each PO TID 02/26/18 mg Tablet] Omeprazole 20 mg PO BID 02/26/18 Selegiline HCl 5 mg PO TID 02/26/18 Gabapentin 300 mg PO HS 06/18/19 Abnormal Lab Results 01/24/20 01/24/20 18:50 18:50 WBC 14.0 H MCV 78.0 L MCH 25.4 L RDW 16.2 H Anion Gap 7 L BUN 18.5 H Calcium 10.3 H Alkaline Phosphatase 134 H Total Protein 8.3 H Current Medications Generic Name Dose Route Start Last Admin Trade Name Freq PRN Reason Stop Dose Admin Sodium Chloride 1,000 mls @ 83 mls/hr 01/25/20 00:15 01/25/20 00:22 Normal Saline - IV 83 mls/hr ASDIR YESSY Administration Ceftriaxone Sodium 1 gm/ 50 mls @ 100 mls/hr 01/25/20 10:00 Dextrose IVPB DAILY YESSY Morphine Sulfate 2 mg 01/25/20 00:20 Morphine Sulfate IVPUSH Q4H PRN PAIN LEVEL 6-10 Pantoprazole Sodium 40 mg 01/25/20 10:00 Protonix - PO DAILY YESSY Tamsulosin HCl 0.4 mg 01/25/20 08:30 Flomax - PO DAILY@0830 [facility] ASSESSMENT AND PLAN: 1. Ureteral stone - CT scan of abdomen/pelvis with IV contrast shows - " Atelectasis and scarring in lung bases. 4 mm right lower lobe nodules. No pleural effusions. The liver, pancreas, adrenal glands, and spleen are unremarkable. Cholecystectomy. Bilateral renal cysts. Moderate left perinephric edema and mild left hydroureteronephrosis due to a 7 mm x 5 mm x 4 mm calculus in the proximal left ureter at the level of L4. No intrarenal calculi. No AAA. No evidence for diverticulitis, small bowel obstruction, free fluid, or free air. Surgical changes around the cecum suggestive of appendectomy." Will treat with IV NS, IV Ceftriaxone 1 gm q 24 hours, Flomax, get PT/INR, strain patients urine, keep patient NPO, use IV Morphine for pain control, consult Urology and refer to Nephrology for stone disease risk factor evaluation. Will investigate mild hypercalcemia if it persists after adequate hydration. Viral testing for COVID-19 ordered and patient placed on airborne, droplet and contact isolation. EKG shows NSR at 81/minute, LVH and QTc [address]-T wave changes. Will continue comprehensive care for all of patients comorbid conditions including Sinemet for Parkinson's disease. 2. Obesity Counseled on the risks associated with obesity. Will provide patient all the necessary assistance, counseling and positive reinforcement to facilitate weight loss. Consult manager resort. 3. Hypertension Will restart suitable outpatient antihypertensive drugs when clinically appropriate. Subsequently, will revise regimen to ensure [id number] excellent BP control. Patient counseled on the injurious effects of uncontrolled hypertension. Nonpharmacologic measures to control hypertension like weight loss, salt restriction and exercise stressed. Importance of adherence to treatment regimen and attainment of normotension emphasized. 4. DVT prophylaxis - SCD. 5. Advance directives - Full code
[2020-01-25] MEDS: SODIUM CHLORIDE 1,000 ML IV SCH ×2 (00:22→21:39)
--- NOTE | 2020-01-25 00:43 | HP ---
CHIEF COMPLAINT: sudden onset left flank pain with suprapubic tenderness PCP: Dr. Dash HISTORY OF PRESENT ILLNESS: 54 year old male patient with past medical history that includes History of Kidney Stones, Parkinson's Disease, and Arthritis, who presented to the emergency room with sudden onset left flank pain with suprapubic tenderness that started at 10am. This is the first time the patient has ever had this kind of pain. The flank pain is sharp while the suprapubic pain is squeezing. The pain intensity is 8/10 and dropped slightly to a 7/10 with Morphine and Ketorolac. The pain comes and goes but is worse with movement. The patient denies dysuria, hematuria, or urinary frequency. The patient reports a history of very small kidney stones that were incidentally found on a previous admission. ER course was notable for: (1) ECG (NSR, 81bpm, QTc 418ms, [place] 144ms) (2) CT A/P (Bilateral renal cysts. Moderate left perinephric edema and mild left hydroureteronephrosis due to a 7 mm x 5 mm x 4 mm calculus in the proximal left ureter at the level of L4. No intrarenal calculi.) (3) Recent Travel: Denies PAST MEDICAL HISTORY: History of Kidney Stones, Parkinson's Disease, Arthritis PAST SURGICAL HISTORY: Cholecystectomy and appendectomy Social History: Smoking: Denies Alcohol: Denies Drugs: Denies Allergies No Known Allergies Allergy (Verified 01/24/20 18:07) HOME MEDICATIONS: Home Medications Medication Instructions Recorded Carbidopa/Levodopa [Sinemet 25-100 2 each PO TID 02/26/18 mg Tablet] Omeprazole 20 mg PO BID 02/26/18 Selegiline HCl 5 mg PO TID 02/26/18 Gabapentin 300 mg PO HS 06/18/19 REVIEW OF SYSTEMS CONSTITUTIONAL: Absent: no body aches, no fever, no chills HEENT: Absent: no headache CARDIOVASCULAR: Absent: no chest pain RESPIRATORY: Absent: no shortness of breath GASTROINTESTINAL: Absent: no nausea, no vomiting, no diarrhea, no constipation GENITOURINARY: left flank pain, suprapubic pain Absent: no hematuria, no dysuria, no urinary frequency PHYSICAL EXAMINATION Vital Signs - 24 hr 01/24/20 01/24/20 18:04 21:43 Temperature 98 F 97.9 F Pulse Rate 107 H Pulse Rate [ 86 Left Apical] Respiratory 18 20 Rate Blood Pressure 156/104 H Blood Pressure 141/104 H [Left Arm] O2 Sat by Pulse 97 97 Oximetry (%) GENERAL: Awake, alert, and fully oriented, in no acute distress. HEAD: Normal with no signs of trauma. EYES: Pupils equal, round and reactive to light, extraocular movements intact. No lid lag. EARS, NOSE, THROAT: Ears normal, nares patent, oropharynx clear without exudates. Moist mucous membranes. NECK: Normal range of motion, supple without lymphadenopathy, JVD, or masses. LUNGS: Breath sounds equal, clear to auscultation bilaterally. No wheezes, and no crackles. No accessory muscle use. HEART: Regular rate and rhythm, normal S1 and S2 without murmur, rub or gallop. ABDOMEN: Soft, nontender, not distended, normoactive bowel sounds, no guarding, no rebound, no masses. MUSCULOSKELETAL: Normal range of motion at all joints. No bony deformities or tenderness. Left CVA tenderness. Mild suprapubic tenderness. UPPER EXTREMITIES: 2+ pulses, warm, well-perfused. No cyanosis. No clubbing. No peripheral edema. LOWER EXTREMITIES: 2+ pulses, warm, well-perfused. No calf tenderness. No peripheral edema. NEUROLOGICAL: Normal speech. PSYCHIATRIC: Cooperative. Good eye contact. Appropriate mood and affect. SKIN: Warm, dry, normal turgor, no rashes or lesions noted, normal capillary refill. Laboratory Results - last 24 hr 01/24/20 01/24/20 01/24/20 18:50 18:50 19:49 WBC 14.0 H RBC 5.60 Hgb 14.2 Hct 43.6 D MCV 78.0 L MCH 25.4 L MCHC 32.6 RDW 16.2 H Plt Count 283 D MPV 9.2 D Sodium 139 Potassium 4.2 Chloride 107 Carbon Dioxide 25 Anion Gap 7 L BUN 18.5 H Creatinine 1.3 Est GFR (CKD-EPI)AfAm 71.69 Est GFR (CKD-EPI)NonAf 61.86 Random Glucose 97 Calcium 10.3 H Total Bilirubin 0.3 AST 28 ALT 17 Alkaline Phosphatase 134 H Total Protein 8.3 H Albumin 3.7 Lipase 227 Urine Color Yellow Urine Appearance Clear Urine pH 5.5 Ur Specific [place] 1.028 Urine Protein Trace Urine Glucose (UA) Negative Urine Ketones Negative Urine Blood Negative Urine Nitrite Negative Urine Bilirubin Negative Urine Urobilinogen 1.0 Ur Leukocyte Esterase Negative ASSESSMENT/PLAN: 54 year old male patient with past medical history that includes History of Kid [place] Stones, Parkinson's Disease, and Arthritis, who presented to the emergency room with sudden onset left flank pain with suprapubic tenderness that started at 10am. 1. Nephrolithiasis - CT A/P shows a 7mm x 5mm x 4mm stone - ordered Tamsulosin - ordered IV Morphine for pain - ordered IV Fluids - ordered Ceftriaxone 1gm daily - ordered straining of urine - consulted Urology - consulted Nephrology 2. Parkinson's Disease - continued home medications 3. 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 - New Patient This patient is new to me today: Yes Date on this admission: 01/25/20 - Critical Care Critical Care patient: No ATTENDING PHYSICIAN STATEMENT I saw and evaluated the patient. I reviewed the resident's note and discussed the case with the resident. I agree with the resident's findings and plan as documented. SUBJECTIVE: OBJECTIVE: ASSESSMENT AND PLAN:
[2020-01-25] MEDS ORDERED: MORPHINE SULFATE 2 MG/ML VIAL ONE (05:36)
[2020-01-25] MEDS ORDERED: CARBIDOPA/LEVODOPA 25/100 TABLET (FP) ONE (05:37)
[2020-01-25] MEDS: SELEGILINE HCL 5 MG CAPSULE PO SCH ×2 (06:05→10:50)
[2020-01-25] MEDS: CARBIDOPA/LEVODOPA 25/100 TABLET (FP) PO SCH ×3 (06:05→16:09)
[2020-01-25] MEDS: MORPHINE SULFATE 2 MG/ML VIAL IVPUSH PRN ×2 (06:06→21:39)
[2020-01-25 07:10] LABS: BASO % 0.7 % (0-2.0); EOS % 7.3 % (0-4.5); HEMATOCRIT 39.3 % (35.4-49); HEMOGLOBIN 12.6 GM/dL (11.7-16.9); LYMPH % 26.1 % (8-40); MCH 25.1 pg (25.7-33.7); MEAN CELL VOLUME 78.3 fl (80-96); MEAN PLT VOLUME 9.1 fl (7.5-11.1); MONO % 8.2 % (3.8-10.2); NEUT % 57.7 % (42.8-82.8); PLATELET COUNT 229 K/MM3 (134-434); RBC 5.01 M/mm3 (4.00-5.60); RDW 16.6 % (11.9-15.9); WHITE BLOOD COUNT 8.1 K/mm3 (4.0-10.0)
[2020-01-25 07:30] LABS: BLOOD UREA NITROGEN 17.9 mg/dL (7-18); CALCIUM 9.1 mg/dL (8.5-10.1); CREATININE 0.8 mg/dL (0.55-1.3); MAGNESIUM 2.1 mg/dL (1.8-2.4); PHOSPHOROUS 3.4 mg/dL (2.5-4.9); POTASSIUM 4.1 mmol/L (3.5-5.1)
[2020-01-25 08:21] LABS: INR 1.03 (0.83-1.09); PROTHROMBIN TIME (PATIENT) 12.2 SEC (9.7-13.0)
[2020-01-25] MEDS ORDERED: ACETAMINOPHEN 1000 MG/100 ML VIAL (NON FORMULARY) IVPB PRN (08:58)
[2020-01-25] MEDS ORDERED: PATIENT'S OWN MEDICATION (NON-FORMULARY) (Omeprazole [Omeprazole] 20 MG) PO SCH (10:00)
[2020-01-25] MEDS ORDERED: PANTOPRAZOLE 40 MG TABLET PO SCH (10:00)
[2020-01-25] MEDS ORDERED: CEFTRIAXONE 1 GM/50 ML BAG ONE (10:25)
[2020-01-25] MEDS ORDERED: ACETAMINOPHEN INJECTION 100 ML IVPB ONE ×2 (10:28→10:43)
--- NOTE | 2020-01-25 10:31 | EKG ---
Test Reason : Blood Pressure : / mmHG Vent. Rate : 081 BPM Atrial Rate : 081 BPM P-R Int : 144 ms QRS Dur : 082 ms QT Int : 360 ms P-R-T Axes : 018 -16 -06 degrees QTc Int : 418 ms NORMAL SINUS RHYTHM MINIMAL VOLTAGE CRITERIA FOR LVH, MAY BE NORMAL VARIANT BORDERLINE ECG WHEN COMPARED WITH ECG OF 17-JUN-2019 21:35, NO SIGNIFICANT CHANGE WAS FOUND Confirmed by DANNY BARRERA MD ([id number]) on 01/25/2020 10:31:20 AM Referred By: Confirmed By:DANNY BARRERA MD
[2020-01-25] MEDS: PANTOPRAZOLE 40 MG TABLET PO SCH (10:50)
[2020-01-25] MEDS: CEFTRIAXONE 1 GM in DEXTROSE 5%-WATER - 50 ML IVPB SCH (10:50)
[2020-01-25] MEDS: TAMSULOSIN HCL 0.4 MG CAP PO SCH (10:50)
--- NOTE | 2020-01-25 11:52 | CONSULT ---
Consultation: REQUESTING PROVIDER: Nephrology Consult- Resident Note CONSULT REQUEST: We have been asked to medically evaluate this patient for nephrolithiasis HISTORY OF PRESENT ILLNESS: Patient is a 54 year old male with history of prior nephrolithiasis (uncertain stone composition- passed spontaneously), Parkinson's Disease, arthritis, presented with complaint of suprapubic, and left flank pain. Patient endorses sharp pain that has been ongoing for the past two days. Began at suprapubic area with radiation to the left flank, however now pain is localized primarily to the left flank. CT abdomen, pelvis revealed 7mm calcification at proximal third of left ureter with moderate degree hydronephrosis, baudilio-nephric and baudilio-ureteric stranding noted. Patient is voiding without dysuria, hematuria. Denies subjective fevers, chills, shortness of breath, chest pain, palpitations, abdominal pain, nausea, vomiting. Medical history: nephrolithiasis, Parkinson's Disease, arthritis, Surgical history: cholecystectomy, appendectomy. Family history: noncontributory Social: Denies alcohol consumption, smoking cigarettes, illicit drug use. REVIEW OF SYSTEMS: As per HPI PHYSICAL EXAMINATION Vital Signs - 24 hr 01/24/20 01/24/20 01/25/20 18:04 21:43 00:59 Temperature 98 F 97.9 F Pulse Rate 107 H Pulse Rate [ 86 Left Apical] Respiratory 18 20 Rate Blood Pressure 156/104 H Blood Pressure 141/104 H [Left Arm] O2 Sat by Pulse 97 97 98 Oximetry (%) 01/25/20 01/25/20 01/25/20 05:26 06:05 11:16 Temperature 97.8 F 98.0 F Pulse Rate 78 Pulse Rate [ 71 Left Apical] Respiratory 18 18 Rate Blood Pressure 142/99 Blood Pressure 134/100 [Left Arm] O2 Sat by Pulse 98 99 96 Oximetry (%) GENERAL: The patient is awake, alert, and fully oriented, in no acute distress. HEAD: Normocephalic, atraumatic. EYES: PERRL, extraocular movements intact, sclera anicteric, conjunctiva clear. ENT: Oropharynx clear, without erythema or exudates. Moist mucous membranes. NECK: Trachea midline, full range of motion. Supple without lymphadenopathy. LUNGS: Breath sounds equal, clear to auscultation bilaterally. No wheezes, no crackles. No accessory muscle use. HEART: Regular rate and rhythm. S1, S2 without murmur, rub or gallop. ABDOMEN: Soft, nondistended, nontender to light and deep palpation x4 quadrants. No rebound tenderness, no guarding. Normoactive bowel sounds x4 quadrants. No hepatosplenomegaly, no masses appreciated. Left CVA tenderness elicited upon exam. Negative suprapubic tenderness. EXTREMITIES: 2+ radial, dorsalis pedis pulses bilaterally. Warm, well-perfused. No lower extremity edema bilaterally. NEUROLOGICAL: Cranial nerves II through XII grossly intact. Normal speech. No gross focal deficits. PSYCH: Normal mood, normal affect upon my encounter. SKIN: Warm, dry. Laboratory Results - last 24 hr 01/24/20 01/24/20 01/24/20 18:50 18:50 19:49 WBC 14.0 H RBC 5.60 Hgb 14.2 Hct 43.6 D MCV 78.0 L MCH 25.4 L MCHC 32.6 RDW 16.2 H Plt Count 283 D MPV 9.2 D Absolute Neuts (auto) Neutrophils % Lymphocytes % Monocytes % Eosinophils % Basophils % Nucleated RBC % PT with INR INR Sodium 139 Potassium 4.2 Chloride 107 Carbon Dioxide 25 Anion Gap 7 L BUN 18.5 H Creatinine 1.3 Est GFR (CKD-EPI)AfAm 71.69 Est GFR (CKD-EPI)NonAf 61.86 Random Glucose 97 Calcium 10.3 H Phosphorus Magnesium Total Bilirubin 0.3 AST 28 ALT 17 Alkaline Phosphatase 134 H Total Protein 8.3 H Albumin 3.7 Lipase 227 Urine Color Yellow Urine Appearance Clear Urine pH 5.5 Ur Specific [place] 1.028 Urine Protein Trace Urine Glucose (UA) Negative Urine Ketones Negative Urine Blood Negative Urine Nitrite Negative Urine Bilirubin Negative Urine Urobilinogen 1.0 Ur Leukocyte Esterase Negative 01/25/20 01/25/20 01/25/20 05:40 05:40 05:40 WBC 8.1 RBC 5.01 Hgb 12.6 Hct 39.3 MCV 78.3 L MCH 25.1 L MCHC 32.0 RDW 16.6 H Plt Count 229 MPV 9.1 Absolute Neuts (auto) 4.7 Neutrophils % 57.7 Lymphocytes % 26.1 D Monocytes % 8.2 Eosinophils % 7.3 H Basophils % 0.7 Nucleated RBC % 0 PT with INR 12.20 INR 1.03 Sodium 139 Potassium 4.1 Chloride 108 H Carbon Dioxide 24 Anion Gap 7 L BUN 17.9 Creatinine 0.8 Est GFR (CKD-EPI)AfAm 117.38 Est GFR (CKD-EPI)NonAf 101.27 Random Glucose 87 Calcium 9.1 Phosphorus 3.4 Magnesium 2.1 Total Bilirubin AST ALT Alkaline Phosphatase Total Protein Albumin Lipase Urine Color Urine Appearance Urine pH Ur Specific [place] Urine Protein Urine Glucose (UA) Urine Ketones Urine Blood Urine Nitrite Urine Bilirubin Urine Urobilinogen Ur Leukocyte Esterase Active Medications Generic Name Dose Route Start Last Admin Trade Name Freq PRN Reason Stop Dose Admin Acetaminophen 1,000 mg 01/25/20 08:58 Ofirmev Injection - IVPB 01/26/20 08:58 Q6H PRN PAIN LEVEL 1-5 Carbidopa/Levodopa 2 each 01/25/20 06:00 01/25/20 10:50 Sinemet 25/100 - PO Not Given 0600,1000 [facility] Carbidopa/Levodopa 1 each 01/25/20 15:00 Sinemet 25/100 - PO DAILY@1500 [facility] Sodium Chloride 1,000 mls @ 83 mls/hr 01/25/20 00:15 01/25/20 00:22 Normal Saline - IV 83 mls/hr ASDIR YESSY Administration Ceftriaxone Sodium 1 gm/ 50 mls @ 100 mls/hr 01/25/20 10:00 01/25/20 10:50 Dextrose IVPB 100 mls/hr DAILY YESSY Administration Morphine Sulfate 2 mg 01/25/20 00:20 01/25/20 06:06 Morphine Sulfate IVPUSH 2 mg Q4H PRN Administration PAIN LEVEL 6-10 Pantoprazole Sodium 40 mg 01/25/20 03:00 01/25/20 10:50 Protonix - PO Not Given DAILY [facility] Selegiline HCl 5 mg 01/25/20 06:00 01/25/20 10:50 Selegiline Hcl PO Not Given 0600,1000 [facility] Tamsulosin HCl 0.4 mg 01/25/20 08:30 01/25/20 10:50 Flomax - PO Not Given DAILY@0830 [facility] ASSESSMENT/PLAN: Patient is a 54 year old male with history of prior nephrolithiasis (uncertain stone composition- passed spontaneously), Parkinson's Disease, arthritis, presented with complaint of suprapubic, and left flank pain. Admitted for left sided, partially obstructive nephrolithiasis. Impression Nephrolithiasis Parkinson's disease Nephrolithiasis -Continue judicious hydration with normal saline. -Follow urine output. -Continue Tamsulosin -Strain urine. Attempt to collect stone for composition analysis. Suspect calcium oxalate/ calcium phosphate stone. -Further stone workup can be performed as outpatient. -Agree with Urology consult; given size of the stone, may not pass spontaneously. -Follow BMP Disposition: We will continue to follow the patient. Thank you for this consultative opportunity. Visit type - Emergency Visit Emergency Visit: Yes ED Registration Date: 01/24/20 Care time: The patient presented to the Emergency Department on the above date and was hospitalized for further evaluation of their emergent condition. - New Patient This patient is new to me today: Yes Date on this admission: 01/25/20 - Critical Care Critical Care patient: No ATTENDING PHYSICIAN STATEMENT I saw and evaluated the patient. I reviewed the resident's note and discussed the case with the resident. I agree with the resident's findings and plan as documented. SUBJECTIVE: OBJECTIVE: ASSESSMENT AND PLAN:
--- NOTE | 2020-01-25 15:54 | PN ---
Teaching Attending Note Name of Resident: Desean Solitario (Nephrology) ATTENDING PHYSICIAN STATEMENT I saw and evaluated the patient. I reviewed the resident's note and discussed the case with the resident. I agree with the resident's findings and plan as documented. Renal Pt is a 54 year old make with pmhx of nephrolithiasis, parkinsons and arthritis who presents with left flank pain. He was found to have a stone. 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 He denies fevers or chills. pmhx nephrolithiasis parkinsosn arthritis nkda social hx denies fam hx non contrib ros neg ct scan report reviewed Current Medications Generic Name Dose Route Start Last Admin Trade Name Freq PRN Reason Stop Dose Admin Acetaminophen 1,000 mg 01/25/20 08:58 01/25/20 11:50 Ofirmev Injection - IVPB 01/26/20 08:58 1,000 mg Q6H PRN Administration PAIN LEVEL 1-5 Carbidopa/Levodopa 2 each 01/25/20 06:00 01/25/20 10:50 Sinemet 25/100 - PO Not Given 0600,1000 [facility] Carbidopa/Levodopa 1 each 01/25/20 15:00 Sinemet 25/100 - PO DAILY@1500 [facility] Sodium Chloride 1,000 mls @ 83 mls/hr 01/25/20 00:15 01/25/20 00:22 Normal Saline - IV 83 mls/hr ASDIR YESSY Administration Ceftriaxone Sodium 1 gm/ 50 mls @ 100 mls/hr 01/25/20 10:00 01/25/20 10:50 Dextrose IVPB 100 mls/hr DAILY YESSY Administration Morphine Sulfate 2 mg 01/25/20 00:20 01/25/20 06:06 Morphine Sulfate IVPUSH 2 mg Q4H PRN Administration PAIN LEVEL 6-10 Pantoprazole Sodium 40 mg 01/25/20 03:00 01/25/20 10:50 Protonix - PO Not Given DAILY [facility] Selegiline HCl 5 mg 01/25/20 06:00 01/25/20 10:50 Selegiline Hcl PO Not Given 0600,1000 [facility] Tamsulosin HCl 0.4 mg 01/25/20 08:30 01/25/20 10:50 Flomax - PO Not Given DAILY@0830 [facility] Laboratory Tests 01/24/20 01/24/20 01/24/20 18:50 18:50 19:49 WBC 14.0 H Sodium Chloride 107 Creatinine 1.3 Urine Protein Trace Urine Blood Negative 01/25/20 01/25/20 05:40 05:40 WBC 8.1 Sodium 139 Chloride 108 H Creatinine 0.8 Urine Protein Urine Blood Last Vital Signs Temp Pulse Resp BP Pulse Ox 98.0 F 78 18 142/99 96 01/25/20 11:16 01/25/20 11:16 01/25/20 11:46 01/25/20 11:16 01/25/20 11:46 cardio s1s2 gi soft gu left flank pain ext neg edema neuro awake and alert Impression 1. nephrolithiasis 2. arthritis 3. parkinsons Plan - urology eval - cont flomax for now - monitor bp - send stone to path if obtained - will need stone workup as outpt
--- NOTE | 2020-01-25 17:25 | PN ---
Physical Exam: SUBJECTIVE: Patient seen and examined OBJECTIVE: Vital Signs Period Temp Pulse Resp BP Sys/Dominguez Pulse Ox Last 24 Hr 97.8 F-98.0 F 71-107 18-20 134-156/99-104 96-99 GENERAL: The patient is awake, alert, and fully oriented, in no acute distress. HEAD: Normal with no signs of trauma. EYES: PERRL, extraocular movements intact, sclera anicteric, conjunctiva clear. No ptosis. ENT: Ears normal, nares patent, oropharynx clear without exudates, moist mucous membranes. NECK: Trachea midline, full range of motion, supple. LUNGS: Breath sounds equal, clear to auscultation bilaterally, no wheezes, no crackles, no accessory muscle use. HEART: Regular rate and rhythm, S1, S2 without murmur, rub or gallop. ABDOMEN: Soft, nontender, nondistended, normoactive bowel sounds, no guarding, no rebound, no hepatosplenomegaly, no masses. EXTREMITIES: 2+ pulses, warm, well-perfused, no edema. NEUROLOGICAL: Cranial nerves II through XII grossly intact. Normal speech, gait not observed. PSYCH: Normal mood, normal affect. SKIN: Warm, dry, normal turgor, no rashes or lesions noted Laboratory Results - last 24 hr 01/24/20 01/24/20 01/24/20 18:50 18:50 19:49 WBC 14.0 H RBC 5.60 Hgb 14.2 Hct 43.6 D MCV 78.0 L MCH 25.4 L MCHC 32.6 RDW 16.2 H Plt Count 283 D MPV 9.2 D Absolute Neuts (auto) Neutrophils % Lymphocytes % Monocytes % Eosinophils % Basophils % Nucleated RBC % PT with INR INR Sodium 139 Potassium 4.2 Chloride 107 Carbon Dioxide 25 Anion Gap 7 L BUN 18.5 H Creatinine 1.3 Est GFR (CKD-EPI)AfAm 71.69 Est GFR (CKD-EPI)NonAf 61.86 Random Glucose 97 Calcium 10.3 H Phosphorus Magnesium Total Bilirubin 0.3 AST 28 ALT 17 Alkaline Phosphatase 134 H Total Protein 8.3 H Albumin 3.7 Lipase 227 Urine Color Yellow Urine Appearance Clear Urine pH 5.5 Ur Specific [place] 1.028 Urine Protein Trace Urine Glucose (UA) Negative Urine Ketones Negative Urine Blood Negative Urine Nitrite Negative Urine Bilirubin Negative Urine Urobilinogen 1.0 Ur Leukocyte Esterase Negative 01/25/20 01/25/20 01/25/20 05:40 05:40 05:40 WBC 8.1 RBC 5.01 Hgb 12.6 Hct 39.3 MCV 78.3 L MCH 25.1 L MCHC 32.0 RDW 16.6 H Plt Count 229 MPV 9.1 Absolute Neuts (auto) 4.7 Neutrophils % 57.7 Lymphocytes % 26.1 D Monocytes % 8.2 Eosinophils % 7.3 H Basophils % 0.7 Nucleated RBC % 0 PT with INR 12.20 INR 1.03 Sodium 139 Potassium 4.1 Chloride 108 H Carbon Dioxide 24 Anion Gap 7 L BUN 17.9 Creatinine 0.8 Est GFR (CKD-EPI)AfAm 117.38 Est GFR (CKD-EPI)NonAf 101.27 Random Glucose 87 Calcium 9.1 Phosphorus 3.4 Magnesium 2.1 Total Bilirubin AST ALT Alkaline Phosphatase Total Protein Albumin Lipase Urine Color Urine Appearance Urine pH Ur Specific [place] Urine Protein Urine Glucose (UA) Urine Ketones Urine Blood Urine Nitrite Urine Bilirubin Urine Urobilinogen Ur Leukocyte Esterase Active Medications Generic Name Dose Route Start Last Admin Trade Name Freq PRN Reason Stop Dose Admin Acetaminophen 1,000 mg 01/25/20 08:58 01/25/20 11:50 Ofirmev Injection - IVPB 01/26/20 08:58 1,000 mg Q6H PRN Administration PAIN LEVEL 1-5 Carbidopa/Levodopa 2 each 01/25/20 06:00 01/25/20 10:50 Sinemet 25/100 - PO Not Given 0600,1000 [facility] Carbidopa/Levodopa 1 each 01/25/20 15:00 01/25/20 16:09 Sinemet 25/100 - PO Not Given DAILY@1500 [facility] Sodium Chloride 1,000 mls @ 83 mls/hr 01/25/20 00:15 01/25/20 00:22 Normal Saline - IV 83 mls/hr ASDIR YESSY Administration Ceftriaxone Sodium 1 gm/ 50 mls @ 100 mls/hr 01/25/20 10:00 01/25/20 10:50 Dextrose IVPB 100 mls/hr DAILY YESSY Administration Morphine Sulfate 2 mg 01/25/20 00:20 01/25/20 06:06 Morphine Sulfate IVPUSH 2 mg Q4H PRN Administration PAIN LEVEL 6-10 Pantoprazole Sodium 40 mg 01/25/20 03:00 01/25/20 10:50 Protonix - PO Not Given DAILY [facility] Selegiline HCl 5 mg 01/25/20 06:00 01/25/20 10:50 Selegiline Hcl PO Not Given 0600,1000 [facility] Tamsulosin HCl 0.4 mg 01/25/20 08:30 01/25/20 10:50 Flomax - PO Not Given DAILY@0830 [facility] ASSESSMENT/PLAN: 54 year old man patient with Mhx of Kidney Stones, Parkinson's Disease, and Arthritis, who presented to the emergency room with sudden onset left flank pain # Nephrolithiasis with sepsis has elevated WBC, tachy, met sepsis criteria WBC improving today CT A/P shows a 7mm lt ureteral stone with mod hydronephrosis Tamsulosin, IVF, pain management as indicated Ceftriaxone 1gm daily started on diet consulted Urology, pending eval Nephrology consult appreciated Parkinson's Disease Obesity DVT PPx - SCDs Visit type - Emergency Visit Emergency Visit: Yes ED Registration Date: 01/24/20 Care time: The patient presented to the Emergency Department on the above date and was hospitalized for further evaluation of their emergent condition. - New Patient This patient is new to me today: Yes Date on this admission: 01/25/20 - Critical Care Critical Care patient: No - Discharge Referral Referred to [facility] Med [facility] No
[2020-01-26] MEDS: SODIUM CHLORIDE 1,000 ML IV SCH ×2 (01:12→12:32)
[2020-01-26] MEDS: MORPHINE SULFATE 2 MG/ML VIAL IVPUSH PRN ×2 (05:08→11:08)
[2020-01-26] MEDS: SELEGILINE HCL 5 MG CAPSULE PO SCH ×2 (05:12→10:52)
[2020-01-26] MEDS: CARBIDOPA/LEVODOPA 25/100 TABLET (FP) PO SCH ×3 (05:12→15:43)
[2020-01-26 09:07] LABS: BASO % 0.9 % (0-2.0); EOS % 6.3 % (0-4.5); HEMATOCRIT 41.2 % (35.4-49); HEMOGLOBIN 13.2 GM/dL (11.7-16.9); LYMPH % 29.4 % (8-40); MCH 25.3 pg (25.7-33.7); MCHC 32.1 g/dl (32.0-35.9); MEAN CELL VOLUME 78.8 fl (80-96); MEAN PLT VOLUME 9.4 fl (7.5-11.1); MONO % 8.9 % (3.8-10.2); NEUT % 54.5 % (42.8-82.8); PLATELET COUNT 249 K/MM3 (134-434); RBC 5.22 M/mm3 (4.00-5.60); RDW 16.1 % (11.9-15.9); WHITE BLOOD COUNT 7.2 K/mm3 (4.0-10.0)
[2020-01-26] MEDS ORDERED: cefTRIAXone SODIUM 1 GM VIAL ONE (09:27)
[2020-01-26] MEDS ORDERED: DEXTROSE 5%-WATER - 50 ML IVPB ONE (09:27)
[2020-01-26 09:37] LABS: ALBUMIN 3.3 g/dl (3.4-5.0); BILIRUBIN,TOTAL 0.7 mg/dL (0.2-1); BLOOD UREA NITROGEN 11.6 mg/dL (7-18); CALCIUM 9.9 mg/dL (8.5-10.1); CREATININE 0.7 mg/dL (0.55-1.3); POTASSIUM 4.4 mmol/L (3.5-5.1); TOT PROT 7.2 g/dl (6.4-8.2)
[2020-01-26] MEDS: CEFTRIAXONE 1 GM in DEXTROSE 5%-WATER - 50 ML IVPB SCH (10:45)
[2020-01-26] MEDS: PANTOPRAZOLE 40 MG TABLET PO SCH (10:45)
[2020-01-26] MEDS: TAMSULOSIN HCL 0.4 MG CAP PO SCH (10:45)
[2020-01-26] MEDS ORDERED: PT OWN MED DRAWER 7, Y5N ONE (10:49)
[2020-01-26] MEDS ORDERED: LIDOCAINE 5% TOPICAL PATCH TP SCH (11:30)
--- NOTE | 2020-01-26 15:23 | PN ---
Progress Note, Physician History of Present Illness: Pt seen and examined at bedside. He is awake and alert. He feels that the flank pain has resolved. - Current Medication List Current Medications: Active Medications Carbidopa/Levodopa (Sinemet 25/100 -) 2 each PO 0600,1000 [facility] Last Admin: 01/26/20 10:51 Dose: 2 each Documented by: Carbidopa/Levodopa (Sinemet 25/100 -) 1 each PO DAILY@1500 [facility] Last Admin: 01/25/20 16:09 Dose: Not Given Documented by: Sodium Chloride (Normal Saline -) 1,000 mls @ 83 mls/hr IV ASDIR [facility] Last Admin: 01/26/20 12:32 Dose: 83 mls/hr Documented by: Ceftriaxone Sodium 1 gm/ (Dextrose) 50 mls @ 100 mls/hr IVPB DAILY [facility] Last Admin: 01/26/20 10:45 Dose: 100 mls/hr Documented by: Lidocaine (Lidoderm Patch -) 1 patch TP DAILY [facility] Last Admin: 01/26/20 12:23 Dose: 1 patch Documented by: Miscellaneous (Lidoderm Patch Removal) 1 each MC DAILY@2200 [facility] Morphine Sulfate (Morphine Sulfate) 2 mg IVPUSH Q4H PRN PRN Reason: PAIN LEVEL 6-10 Last Admin: 01/26/20 11:08 Dose: 2 mg Documented by: Pantoprazole Sodium (Protonix -) 40 mg PO DAILY [facility] Last Admin: 01/26/20 10:45 Dose: 40 mg Documented by: Selegiline HCl (Selegiline Hcl) 5 mg PO 0600,1000 [facility] Last Admin: 01/26/20 10:52 Dose: 5 mg Documented by: Tamsulosin HCl (Flomax -) 0.4 mg PO DAILY@0830 [facility] Last Admin: 01/26/20 10:45 Dose: 0.4 mg Documented by: - Objective Vital Signs: Vital Signs Temperature 97.9 F 01/26/20 10:56 Pulse Rate 82 01/26/20 10:56 Respiratory Rate 18 01/26/20 10:56 Blood Pressure 143/96 01/26/20 10:56 O2 Sat by Pulse Oximetry (%) 97 01/26/20 10:56 Constitutional: Yes: Calm Eyes: Yes: Conjunctiva Clear HENT: Yes: Atraumatic Cardiovascular: Yes: S1, S2 Respiratory: Yes: CTA Bilaterally Gastrointestinal: Yes: Soft Genitourinary: Yes: WNL Musculoskeletal: Yes: WNL Edema: No Neurological: Yes: Oriented Psychiatric: Yes: Oriented Labs: CBC, BMP 01/26/20 07:55 01/26/20 06:00 INR, PTT INR 1.03 (0.83-1.09) 01/25/20 05:40 Assessment/Plan Current Medications Generic Name Dose Route Start Last Admin Trade Name Freq PRN Reason Stop Dose Admin Carbidopa/Levodopa 2 each 01/25/20 06:00 01/26/20 10:51 Sinemet 25/100 - PO 2 each 0600,1000 YESSY Administration Carbidopa/Levodopa 1 each 01/25/20 15:00 01/25/20 16:09 Sinemet 25/100 - PO Not Given DAILY@1500 YESSY Sodium Chloride 1,000 mls @ 83 mls/hr 01/25/20 00:15 01/26/20 12:32 Normal Saline - IV 83 mls/hr ASDIR YESSY Administration Ceftriaxone Sodium 1 gm/ 50 mls @ 100 mls/hr 01/25/20 10:00 01/26/20 10:45 Dextrose IVPB 100 mls/hr DAILY YESSY Administration Lidocaine 1 patch 01/26/20 11:30 01/26/20 12:23 Lidoderm Patch - TP 1 patch DAILY YESSY Administration Miscellaneous 1 each 01/26/20 22:00 Lidoderm Patch Removal MC DAILY@2200 YESSY Morphine Sulfate 2 mg 01/25/20 00:20 01/26/20 11:08 Morphine Sulfate IVPUSH 2 mg Q4H PRN Administration PAIN LEVEL 6-10 Pantoprazole Sodium 40 mg 01/25/20 03:00 01/26/20 10:45 Protonix - PO 40 mg DAILY YESSY Administration Selegiline HCl 5 mg 01/25/20 06:00 01/26/20 10:52 Selegiline Hcl PO 5 mg 0600,1000 YESSY Administration Tamsulosin HCl 0.4 mg 01/25/20 08:30 01/26/20 10:45 Flomax - PO 0.4 mg DAILY@0830 YESSY Administration Laboratory Tests 01/24/20 19:49 Urine Protein Trace Impression 1. nephrolithiasis 2. arthritis 3. parkinsons Plan - pain appears to have improved - urology input pending - repeat ua once episode resolves to evaluate proteinuria - renal function is stable - send stone to path if obtained - will need stone workup as outpt - trace proteinuria
--- NOTE | 2020-01-26 17:28 | CON.GU ---
Consult Consult Specialty:: Referred by:: medicine Reason for Consultation:: left ureteral stone - History of Present Illness Chief Complaint: left ureteral stone History of Present Illness: 54 year old male with history of kidney stones, last lithotripsy in 2019 presents with left sided flank pain and hydro secondary to a 7mm left ureteral stone. His WBC is now normal as is his GFR. He has no fever and his pain has resolved - History Source History Provided By: Patient Limitations to Obtaining History: No Limitations - Past Medical History [employer]: Yes: Parkinson's Pulmonary: Yes: Pneumonia (in the ). No: COPD Renal/: Yes: Renal Calculi - Alcohol/Substance Use Hx Alcohol Use: No - Smoking History Smoking history: Never smoked Have you smoked in the past 12 months: No Home Medications - Allergies Allergies/Adverse Reactions: Allergies Allergy/AdvReac Type Severity Reaction Status Date / Time No Known Allergies Allergy Verified 01/24/20 18:07 - Home Medications Home Medications: Ambulatory Orders Carbidopa/Levodopa [Sinemet 25-100 mg Tablet] 2 each PO TID 02/26/18 Omeprazole 20 mg PO BID 02/26/18 Selegiline HCl 5 mg PO BID 02/26/18 Gabapentin 300 mg PO HS 06/18/19 Review of Systems - Review of Systems Constitutional: reports: No Symptoms Genitourinary: reports: No Symptoms Physical Exam- Vital Signs: Vital Signs Temperature 98.1 F 01/26/20 15:38 Pulse Rate 86 01/26/20 15:38 Respiratory Rate 18 01/26/20 15:38 Blood Pressure 127/78 01/26/20 15:38 O2 Sat by Pulse Oximetry (%) 99 01/26/20 15:38 Renal/: No: Bladder Distention, CVA Tenderness - Left, CVA Tenderness - Right, Hematuria Labs: CBC, BMP 01/26/20 07:55 01/26/20 06:00 Imaging - Results Cat Scan: Report Reviewed Problem List - Problems (1) Calculus of ureter Assessment/Plan: continue medical expulsive therapy (tamsulosin, hydration, pain meds). He is comfortable. can discharge and he will follow up with me within the week. strain all urine Code(s): N20.1 - CALCULUS OF URETER
--- NOTE | 2020-01-26 18:24 | DS ---
Physical Exam: SUBJECTIVE: Patient seen and examined OBJECTIVE: Patient is a 54 year old man patient with a significant past medical history of kidney stones, parkinson's disease, and arthritis, who presented to the emergency room with sudden onset left flank pain. CT A/P shows a 7mm lt ureteral stone with mod hydronephrosis. SEE PROBLEM LIST: Vital Signs Period Temp Pulse Resp BP Sys/Dominguez Pulse Ox Last 24 Hr 97.8 F-98.1 F 71-86 18-20 120-143/78-96 96-99 PHYSICAL EXAM GENERAL: The patient is awake, alert, and fully oriented, in no acute distress. HEAD: Normal with no signs of trauma. EYES: PERRL, extraocular movements intact, sclera anicteric, conjunctiva clear. No ptosis. ENT: Ears normal, nares patent, oropharynx clear without exudates, moist mucous membranes. NECK: Trachea midline, full range of motion, supple. LUNGS: Breath sounds equal, clear to auscultation bilaterally, no wheezes, no crackles, no accessory muscle use. HEART: Regular rate and rhythm, S1, S2 without murmur, rub or gallop. ABDOMEN: Soft, nontender, nondistended, normoactive bowel sounds, no guarding, no rebound, no hepatosplenomegaly, no masses. EXTREMITIES: 2+ pulses, warm, well-perfused, no edema. NEUROLOGICAL: Cranial nerves II through XII grossly intact. Normal speech, gait not observed. PSYCH: Normal mood, normal affect. SKIN: Warm, dry, normal turgor, no rashes or lesions noted LABS Laboratory Results - last 24 hr 01/24/20 01/26/20 01/26/20 23:10 06:00 07:55 WBC 7.2 RBC 5.22 Hgb 13.2 Hct 41.2 MCV 78.8 L MCH 25.3 L MCHC 32.1 RDW 16.1 H Plt Count 249 MPV 9.4 Absolute Neuts (auto) 3.9 Neutrophils % 54.5 Lymphocytes % 29.4 Monocytes % 8.9 Eosinophils % 6.3 H Basophils % 0.9 Nucleated RBC % 0 Sodium 138 Potassium 4.4 Chloride 107 Carbon Dioxide 26 Anion Gap 5 L BUN 11.6 Creatinine 0.7 Est GFR (CKD-EPI)AfAm 124.00 Est GFR (CKD-EPI)NonAf 106.99 Random Glucose 83 Calcium 9.9 Total Bilirubin 0.7 AST 28 ALT 14 Alkaline Phosphatase 129 H Total Protein 7.2 Albumin 3.3 L COVID-19 (OMAR) Not detected HOSPITAL COURSE: Date of Admission:01/24/20 Date of Discharge: 01/26/20 Minutes to complete discharge: 40 Discharge Summary Problems reviewed: Yes Reason For Visit: ACUTE KIDNEY INJURY Current Active Problems SARAH (acute kidney injury) (Acute) Biliary colic (Acute) Calculus of ureter (Acute) Hydronephrosis with renal and ureteral calculous obstruction (Acute) Condition: Unchanged/Unknown - Instructions Diet, Activity, Other Instructions: Please follow up with Dr. Gonzalez in one week Please continue all the medications as outlined in your discharge instructions. Referrals: Isaias Ross MD [Staff Physician] - 1 Week Disposition: HOME - Home Medications Comprehensive Discharge Medication List: Ambulatory Orders Carbidopa/Levodopa [Sinemet 25-100 mg Tablet] 2 each PO TID 02/26/18 Omeprazole 20 mg PO BID 02/26/18 Selegiline HCl 5 mg PO BID 02/26/18 Gabapentin 300 mg PO HS 06/18/19 Carbidopa/Levodopa 25/100 [Sinemet 25/100 -] 1 each PO DAILY@1500 tablet 01/26/20 Cefuroxime Axetil [Ceftin -] 500 mg PO Q12H #10 tablet 01/26/20 Ketorolac Tromethamine [Toradol] 10 mg PO Q6H #120 tablet 01/26/20 Tamsulosin HCl [Flomax -] 0.4 mg PO DAILY@0830 #0 cap.er.24h 01/26/20 Tamsulosin HCl [Flomax] 0.4 mg PO DAILY #30 capsule 01/26/20 Problem List - Problems (1) Sepsis Assessment/Plan: patient presented to the ED with flank pain and CT A/P shows a 7mm lt ureteral stone with mod hydronephrosis On admission had elevated WBC @ 14, afebrile and mild tachycardia. likely early sepsis which as since resolved vitals stable, remains afebrile and WBC now within normal limits continue ceftin BID x 5 more days no further signs of infection at this time. patient to follow up with urologist for further workup as an outpatient Code(s): A41.9 - SEPSIS, UNSPECIFIED ORGANISM (2) Parkinson disease Assessment/Plan: on sinemet outpatient follow up Code(s): G20 - PARKINSON'S DISEASE This patient is new to me today: Yes Date on this admission: 01/27/20 Emergency Visit: Yes ED Registration Date: 01/24/20 Care time: The patient presented to the Emergency Department on the above date and was hospitalized for further evaluation of their emergent condition. Critical Care patient: No - Discharge Referral Referred to [facility] No
[2020-01-26 18:55] VITALS: BP 127/80; PULSE 87; TEMP 98
[2020-01-26] MEDS ORDERED: LIDOCAINE PATCH REMOVAL MC SCH (22:00)
== END 2020-01-26 19:17 | disposition home or self-care (01) | DRG 872 ==
LOC: JER 18:01 → JERBED 22:51 → J5S 01-25 21:21
PROVIDERS: ADMIT Internal Medicine; ATTEND Nurse Practitioner Family
DX: A41.9 Sepsis, unspecified organism (principal); N13.2 Hydronephrosis with renal and ureteral calculous obstruction; N17.9 Acute kidney failure, unspecified; G20 Parkinson's disease; E66.9 Obesity, unspecified; Z68.32 Body mass index [BMI] 32.0-32.9, adult; I10 Essential (primary) hypertension; M19.90 Unspecified osteoarthritis, unspecified site; N28.1 Cyst of kidney, acquired
CPT/HCPCS: 36415; 74177-TC; 80048; 80053; 81003; 83690; 83735; 84100; 85025; 85027; 85610; 87040; 87086; 93005; 93010; 99285-25; J0131; Q9967; U0003

== ENCOUNTER 2022-06-15 21:24 | Emergency (ER) | payer OTHER ==
[2022-06-15 21:28] VITALS: BMI 29.5
[2022-06-15] MEDS ORDERED: KETOROLAC TROMETHAMINE 30 MG/1 ML VIAL IM ONE (22:51)
[2022-06-15] MEDS ORDERED: KETOROLAC TROMETHAMINE 30 MG/1 ML VIAL ONE (23:16)
[2022-06-16 01:53] VITALS: BP 133/87; PULSE 99; RESP 18; TEMP 97.9
== END 2022-06-16 01:57 | disposition home or self-care (01) ==
LOC: JER 21:24
PROC: 3E0233Z Introduction of Anti-inflammatory into Muscle, Percutaneous Approach (ICD-10-PCS; principal; 2022-06-15)
DX: M79.641 Pain in right hand (principal); M25.561 Pain in right knee; V43.62XA Car passenger injured in collision with other type car in traffic accident, initial encounter
CPT/HCPCS: 70450-TC; 70486-TC; 71046-TC-FY; 72170-TC-FY; 73130-TC-RT-FY; 73560-TC-RT-FY; 99285-25